=== PATIENT | female | born 1950 | race Caucasian/White ===

== ENCOUNTER 2020-07-13 20:16 | Emergency (ER) | payer MEDICARE, SELFPAY ==
--- NOTE | ~2020-07-13 | XR_ITS ---
EXAMINATION: XR CHEST CLINICAL INFORMATION: Fever and shortness of breath with question of pneumonia COMPARISON: 05/07/2017 TECHNIQUE: Frontal view of the chest was obtained. FINDINGS: Again seen is marked scoliosis and kyphosis. The heart size is normal. The lungs are clear without infiltrates, effusions or lung masses. There is no evidence of CHF. XR/XR chest 1V IMPRESSION: No acute intrathoracic disease.
[2020-07-13 20:59] VITALS: BP 124/94; PULSE 108; RESP 21; TEMP 38.5; O2SAT 99; BMI 20.4
--- NOTE | 2020-07-13 21:08 | ED.SOB ---
HPI - SOB/Dyspnea General Chief Complaint: Fever Stated Complaint: flu like Time Seen by Provider: 07/13/20 21:08 Source: patient Mode of arrival: ambulatory Limitations: no limitations History of Present Illness HPI Narrative: Patient with no known lung conditions comes here for 7 days of cough mostly dry with shortness of breath and low-grade fever on arrival patient had temperature of 101.3 was saturating 99% at room air MD elicited complaint: shortness of breath and cough Onset (ago): week(s) (1) Related Data Home Medications Medication Instructions Recorded Confirmed cyanocobalamin (vitamin B-12) 1,000 mcg PO DAILY 05/05/20 05/05/20 1,000 mcg tablet lisinopril 20 mg tablet 20 mg PO DAILY 05/05/20 05/05/20 megestrol 40 mg tablet 40 mg PO DAILY 05/05/20 05/05/20 Previous Rx's Medication Instructions Recorded food supplemt, lactose-reduced 1 ea PO DAILY 30 Days #5688 ml 06/04/20 loratadine 10 mg tablet 10 mg PO DAILY #30 tab 06/27/20 azithromycin [Zithromax] 250 mg PO DAILY 4 Days #4 tab 07/13/20 benzonatate [Tessalon Perles] 100 mg PO TID PRN #20 cap 07/13/20 dexamethasone [Decadron] 6 mg PO DAILY #7 tab 07/13/20 Allergies Allergy/AdvReac Type Severity Reaction Status Date / Time No Known Allergies Allergy Verified 05/05/20 14:12 [No Known Allergies*] Review of Systems Review of Systems: Constitutional : No Weight loss, + Fever, No Chills ENT/Mouth : No sore throat, No Rhinorrhea Eyes: No Eye Pain, No Swelling Cardiovascular : No Chest Pain, no palpitations Respiratory :++ Cough, No Sputum, +shortness of breath Gastrointestinal : no Nausea, No Vomiting, No Diarrhea, No abdominal Pain, no black stools Genitourinary : No Dysuria, No Urinary Frequency Musculoskeletal : No joint pain, No Myalgias, No Joint Swelling Skin : No Skin Lesions, No rash Neuro : No Weakness, No Numbness, No Dizziness, No Headache Psych : No Anxiety/Panic, No Depression Heme/Lymph: No Bruising, No Lymphadenopathy Endocrine : No Polyuria, No Polydipsia All other systems reviewed and are negative [facility] Past Medical History Medical History Allergic rhinitis Annual physical exam B12 deficiency Chronic fatigue Essential (primary) hypertension Malnourished Surgical History History of shoulder surgery Family History Family History Father Asthma Mother No problems noted. Brother Hypertension Social History Social History Alcohol intake: never Smoking Status: Never smoker Use of substances other than those prescribed or required for medical reasons: No Advance Directives: No Advance Directives Information Provided: No Physical Exam Vital Signs: Vital Signs: Last Vital Signs Temp 98.6 F 07/13/20 22:43 Pulse 95 07/13/20 22:43 Resp 18 07/13/20 22:43 BP 124/71 07/13/20 22:43 Pulse Ox 98 07/13/20 22:43 Body Mass Index 20.4 Appearance: Alert. Oriented X3. No acute distress. Febrile Eyes: Pupils equal, round and reactive to light. ENT: Pharynx normal. Neck: Normal inspection. Neck supple. CVS: Normal heart rate and rhythm. Pulses normal. Respiratory: No respiratory distress. Breath sounds normal. No rales or wheezing Abdomen: Soft and nontender. Bowel sounds are present, no mass palpable, no CVA tenderness Skin: Skin warm and dry. Normal skin color. Normal skin turgor. Extremities: No lower extremity edema. Neuro: Oriented X 3. No motor deficit. No sensory deficit. MDM - SOB/Dyspnea MDM Narrative Medical decision making narrative: Patient's symptoms matching COVID-19 infection stable labs stable saturation chest x-ray negative for infiltrate will discharge patient home on Decadron and Zithromax advised to follow with PCP and keep social distancing Differential Diagnosis Differential diagnosis: Likely pneumonia Medical Records Attestation: I reviewed the patient's medical records. Lab Data Attestation: I reviewed the patient's lab results. Result diagrams: 07/13/20 21:40 07/13/20 21:40 Labs: Lab Results 07/13/20 07/13/20 07/13/20 Range/Units 21:25 21:40 21:40 WBC 3.5 L (4.8-10.8) X10*3/uL RBC 4.20 (4.20-5.50) X10*6/uL Hgb 13.0 (12.0-16.0) g/dl Hct 39.4 (37-47) % MCV 93.8 (80-98) fL MCH 31.0 (27.0-33.0) pg MCHC 33.0 (31.0-35.0) g/dl RDW 12.3 (11.0-16.0) % Plt Count 199 (160-400) X10*3/uL MPV 10.0 (9.4-12.3) fL Immature Gran % (Auto) 0.8 H (0.0-0.4) % Neut % (Auto) 66.6 (45-73) % Lymph % (Auto) 24.9 (20-40) % [place] % (Auto) 7.4 (2-11) % Eos % (Auto) 0.0 (0-4) % Baso % (Auto) 0.3 (0-2) % Lymph # (Auto) 0.9 L (1.2-4.9) X10*3/uL [place] # (Auto) 0.3 (0.1-1.2) X10*3/uL Eos # (Auto) 0.0 (0.0-0.4) X10*3/uL Baso # (Auto) 0.0 (0.0-0.2) X10*3/uL Abs Immat Gran (auto) 0.03 (0.00-0.03) X10*3/uL Absolute Neuts (auto) 2.4 (2.0-8.3) X10*3/uL Absolute Nucleated RBC 0.000 (0.0-0.012) X10*3/uL Nucleated RBC % (auto) 0.0 (0.0-0.2) /100WBC PT (10.8-13.0) SEC INR (0.9-1.1) APTT (24.1-38.0) SEC Sodium 140 (135-145) mmol/L Potassium 4.5 (3.3-5.1) mmol/L Chloride 106 (96-108) mmol/L Carbon Dioxide 22 (22-29) mmol/L Anion Gap 17 (12-20) BUN 15 (9-16) mg/dL Creatinine 1.11 (0.5-1.4) mg/dL Estim Creat Clear Calc 35.0 Estimated GFR 48 Random Glucose 104 (60-115) mg/dL Lactic Acid (0.5-2.0) mmol/L Calcium 8.3 L (8.4-10.2) mg/dL Total Bilirubin 0.5 (0.0-1.0) mg/dL Direct Bilirubin 0.2 (0.0-0.5) mg/dL AST 40 H (5-31) U/L ALT 35 H (0-31) U/L Alkaline Phosphatase 88 (39-117) U/L B-Natriuretic Peptide (<100) pg/mL Total Protein 7.4 (6.5-8.0) g/dL Albumin 4.2 (3.5-5.0) g/dL Urine Color Urine Appearance Urine pH (5.0-8.0) Ur Specific [place] (1.005-1.025) Urine Protein (NEG-TRACE) MG/DL Urine Glucose (UA) (NEG) MG/DL Urine Ketones (NEG) MG/DL Urine Blood (NEG) Urine Nitrite (NEG) Ur Leukocyte Esterase (NEG) Urine RBC (0) /HPF Urine WBC (0-4) /HPF Ur Squamous Epith Cells /LPF Urine Bacteria /LPF Hyaline Casts /LPF Urine Mucus /LPF Coronavirus (PCR) POSITIVE A (Negative) Influenza Type A (PCR) NEGATIVE (Negative) Influenza Type B (PCR) NEGATIVE (Negative) RSV RNA Qual (PCR) NEGATIVE (Negative) 07/13/20 07/13/20 07/13/20 Range/Units 21:40 21:40 21:40 WBC (4.8-10.8) X10*3/uL RBC (4.20-5.50) X10*6/uL Hgb (12.0-16.0) g/dl Hct (37-47) % MCV (80-98) fL MCH (27.0-33.0) pg MCHC (31.0-35.0) g/dl RDW (11.0-16.0) % Plt Count (160-400) X10*3/uL MPV (9.4-12.3) fL Immature Gran % (Auto) (0.0-0.4) % Neut % (Auto) (45-73) % Lymph % (Auto) (20-40) % [place] % (Auto) (2-11) % Eos % (Auto) (0-4) % Baso % (Auto) (0-2) % Lymph # (Auto) (1.2-4.9) X10*3/uL [place] # (Auto) (0.1-1.2) X10*3/uL Eos # (Auto) (0.0-0.4) X10*3/uL Baso # (Auto) (0.0-0.2) X10*3/uL Abs Immat Gran (auto) (0.00-0.03) X10*3/uL Absolute Neuts (auto) (2.0-8.3) X10*3/uL Absolute Nucleated RBC (0.0-0.012) X10*3/uL Nucleated RBC % (auto) (0.0-0.2) /100WBC PT 14.0 H (10.8-13.0) SEC INR 1.2 H (0.9-1.1) APTT 35.2 (24.1-38.0) SEC Sodium (135-145) mmol/L Potassium (3.3-5.1) mmol/L Chloride (96-108) mmol/L Carbon Dioxide (22-29) mmol/L Anion Gap (12-20) BUN (9-16) mg/dL Creatinine (0.5-1.4) mg/dL Estim Creat Clear Calc Estimated GFR Random Glucose (60-115) mg/dL Lactic Acid 1.3 (0.5-2.0) mmol/L Calcium (8.4-10.2) mg/dL Total Bilirubin (0.0-1.0) mg/dL Direct Bilirubin (0.0-0.5) mg/dL AST (5-31) U/L ALT (0-31) U/L Alkaline Phosphatase (39-117) U/L B-Natriuretic Peptide < 10 (<100) pg/mL Total Protein (6.5-8.0) g/dL Albumin (3.5-5.0) g/dL Urine Color Urine Appearance Urine pH (5.0-8.0) Ur Specific [place] (1.005-1.025) Urine Protein (NEG-TRACE) MG/DL Urine Glucose (UA) (NEG) MG/DL Urine Ketones (NEG) MG/DL Urine Blood (NEG) Urine Nitrite (NEG) Ur Leukocyte Esterase (NEG) Urine RBC (0) /HPF Urine WBC (0-4) /HPF Ur Squamous Epith Cells /LPF Urine Bacteria /LPF Hyaline Casts /LPF Urine Mucus /LPF Coronavirus (PCR) (Negative) Influenza Type A (PCR) (Negative) Influenza Type B (PCR) (Negative) RSV RNA Qual (PCR) (Negative) 07/13/20 Range/Units 22:44 WBC (4.8-10.8) X10*3/uL RBC (4.20-5.50) X10*6/uL Hgb (12.0-16.0) g/dl Hct (37-47) % MCV (80-98) fL MCH (27.0-33.0) pg MCHC (31.0-35.0) g/dl RDW (11.0-16.0) % Plt Count (160-400) X10*3/uL MPV (9.4-12.3) fL Immature Gran % (Auto) (0.0-0.4) % Neut % (Auto) (45-73) % Lymph % (Auto) (20-40) % [place] % (Auto) (2-11) % Eos % (Auto) (0-4) % Baso % (Auto) (0-2) % Lymph # (Auto) (1.2-4.9) X10*3/uL [place] # (Auto) (0.1-1.2) X10*3/uL Eos # (Auto) (0.0-0.4) X10*3/uL Baso # (Auto) (0.0-0.2) X10*3/uL Abs Immat Gran (auto) (0.00-0.03) X10*3/uL Absolute Neuts (auto) (2.0-8.3) X10*3/uL Absolute Nucleated RBC (0.0-0.012) X10*3/uL Nucleated RBC % (auto) (0.0-0.2) /100WBC PT (10.8-13.0) SEC INR (0.9-1.1) APTT (24.1-38.0) SEC Sodium (135-145) mmol/L Potassium (3.3-5.1) mmol/L Chloride (96-108) mmol/L Carbon Dioxide (22-29) mmol/L Anion Gap (12-20) BUN (9-16) mg/dL Creatinine (0.5-1.4) mg/dL Estim Creat Clear Calc Estimated GFR Random Glucose (60-115) mg/dL Lactic Acid (0.5-2.0) mmol/L Calcium (8.4-10.2) mg/dL Total Bilirubin (0.0-1.0) mg/dL Direct Bilirubin (0.0-0.5) mg/dL AST (5-31) U/L ALT (0-31) U/L Alkaline Phosphatase (39-117) U/L B-Natriuretic Peptide (<100) pg/mL Total Protein (6.5-8.0) g/dL Albumin (3.5-5.0) g/dL Urine Color YELLOW Urine Appearance HAZY Urine pH 6.0 (5.0-8.0) Ur Specific [place] >= 1.030 H (1.005-1.025) Urine Protein 2+ H (NEG-TRACE) MG/DL Urine Glucose (UA) NEG (NEG) MG/DL Urine Ketones NEG (NEG) MG/DL Urine Blood TRACE (NEG) Urine Nitrite NEG (NEG) Ur Leukocyte Esterase NEG (NEG) Urine RBC 1-4 (0) /HPF Urine WBC 1-4 (0-4) /HPF Ur Squamous Epith Cells 2+ /LPF Urine Bacteria 2+ /LPF Hyaline Casts 1-4 /LPF Urine Mucus 2+ /LPF Coronavirus (PCR) (Negative) Influenza Type A (PCR) (Negative) Influenza Type B (PCR) (Negative) RSV RNA Qual (PCR) (Negative) ECG Data Attestation: I personally reviewed and interpreted this ECG as follows: Interpretation: Sinus tachycardia with heart rate of [address] T wave changes normal and interval normal axis impression sinus tachycardia no ischemia Discharge Plan Discharge Clinical Impression: COVID-19 Patient Disposition: Home, Self-Care Instructions: COVID-19 (Coronavirus Disease 2019) (ED) Additional Instructions: Social distancing is advised take medication for cough and inflammation. Report to the ER if increased shortness of breath or not feeling better Prescriptions: New dexamethasone [Decadron] 6 mg tablet 6 mg PO DAILY Qty: 7 RF: 0 azithromycin [Zithromax] 250 mg tablet 250 mg PO DAILY 4 Days Qty: 4 RF: 0 benzonatate [Tessalon Perles] 100 mg capsule 100 mg PO TID PRN (Reason: cough) Qty: 20 RF: 0 No Action loratadine 10 mg tablet 10 mg PO DAILY Qty: 30 RF: 0 Ensure Liquid 1 ea PO DAILY 30 Days Qty: 5688 RF: 0 lisinopril 20 mg tablet 20 mg PO DAILY RF: 0 cyanocobalamin (vitamin B-12) 1,000 mcg tablet 1,000 mcg PO DAILY RF: 0 megestrol 40 mg tablet 40 mg PO DAILY RF: 0 Interventions: ED Discharge Assessment Last Done: 07/13/20 22:55 Discharge Date/Time: 07/13/20 23:08
--- NOTE | 2020-07-13 21:11 | ECG_ITS ---
Test Reason : SHORTNESS OFBREATH Blood Pressure : / mmHG Vent. Rate : 104 BPM Atrial Rate : 104 BPM P-R Int : 116 ms QRS Dur : 080 ms QT Int : 346 ms P-R-T Axes : 040 088 038 degrees QTc Int : 454 ms Sinus tachycardia Otherwise normal ECG When compared with ECG of 07-MAY-2017 13:46, No significant change was found Referred By: Danny Varela Electronically Signed By:LATOYA CESPEDES MD
[2020-07-13] MEDS: 0.9 % Sodium Chloride 1,000 ML 999 ML IVCONT (21:42)
[2020-07-13 21:48] LABS: Basophils Percent Auto 0.3 % (0-2); Hematocrit 39.4 % (37-47); Imm Gran Abs Auto 0.03 X10*3/uL (0.00-0.03); Imm Gran Pct Auto 0.8 % (0.0-0.4); Lymphocytes Absolute Auto 0.9 X10*3/uL (1.2-4.9); Lymphocytes Percent Auto 24.9 % (20-40); MANUAL DIFF FLAG NO; Mean Corpuscular Volume 93.8 fL (80-98); Monocytes Absolute Auto 0.3 X10*3/uL (0.1-1.2); Monocytes Percent Auto 7.4 % (2-11); Neutrophils Absolute Auto 2.4 X10*3/uL (2.0-8.3); Neutrophils Percent Auto 66.6 % (45-73); Platelet Count 199 X10*3/uL (160-400); Red Cell Distribution Width 12.3 % (11.0-16.0); White Blood Count 3.5 X10*3/uL (4.8-10.8)
[2020-07-13] MEDS: Acetaminophen 325 MG TABLET 650 MG PO (21:48)
[2020-07-13 21:58] LABS: INTERNATIONAL NORM RATIO 1.2 (0.9-1.1)
[2020-07-13 22:00] LABS: Partial Thromboplastin Time 35.2 SEC (24.1-38.0)
[2020-07-13 22:06] LABS: Lactic Acid 1.3 mmol/L (0.5-2.0)
[2020-07-13 22:12] LABS: Alanine Aminotransferase 35 U/L (0-31); Albumin Level 4.2 g/dL (3.5-5.0); Alkaline Phosphatase 88 U/L (39-117); Anion Gap 17 (12-20); Aspartate Amino Transferase 40 U/L (5-31); Bilirubin Direct 0.2 mg/dL (0.0-0.5); Bilirubin Total 0.5 mg/dL (0.0-1.0); Blood Urea Nitrogen 15 mg/dL (9-16); Calcium 8.3 mg/dL (8.4-10.2); Carbon Dioxide 22 mmol/L (22-29); Chloride 106 mmol/L (96-108); Estimated Glomerular Filt Rate 48; Glucose Random 104 mg/dL (60-115); Potassium 4.5 mmol/L (3.3-5.1); Sodium 140 mmol/L (135-145); Total Protein 7.4 g/dL (6.5-8.0)
[2020-07-13 22:18] LABS: B Type Natriuretic Peptide < 10 pg/mL (<100)
[2020-07-13 22:23] LABS: Influenza A PCR NEGATIVE (Negative); Influenza B PCR NEGATIVE (Negative); Resp Syncy Virus RNA Qual PCR NEGATIVE (Negative)
[2020-07-13 22:27] LABS: SARS COV2 PCR INHOUSE POSITIVE (Negative)
[2020-07-13 22:43] VITALS: BP 124/71; PULSE 95; RESP 18; TEMP 37; O2SAT 98
[2020-07-13] MEDS: Azithromycin 500 MG TABLET PO (22:48)
[2020-07-13] MEDS: dexAMETHasone 2 MG TABLET 10 MG PO (22:48)
[2020-07-13 22:54] LABS: Glucose Urine UA NEG (NEG); Leukocyte Esterase Urine NEG (NEG); Nitrite Urine NEG (NEG); Specific Gravity - Urine >= 1.030 (1.005-1.025); Urine Blood TRACE (NEG); Urine Ketones NEG (NEG); Urine Protein 2+ MG/DL (NEG-TRACE)
[2020-07-13 22:57] LABS: Appearance Urine HAZY; Color Urine YELLOW
[2020-07-13 23:01] LABS: Bacteria Urine 2+ /LPF; Mucus Urine 2+ /LPF; Squamous Epithelial Cell Urine 2+ /LPF
== END 2020-07-13 23:08 | disposition home or self-care (01) ==
PROVIDERS: Emergency Provider Internal Medicine; PCP Internal Medicine
DX: U07.1 COVID-19 (principal); R50.9 Fever, unspecified; R05 Cough; Z79.899 Other long term (current) drug therapy
CPT/HCPCS: 0241U; 36415; 71045; 80048; 80076; 81001; 83605; 83880; 85025; 85610; 85730; 87040; 93005; 96360; 99284; J8540

== ENCOUNTER 2021-02-18 11:35 | Outpatient (REF) | payer MEDICARE, SELFPAY ==
--- NOTE | ~2021-02-18 | MM_ITS ---
EXAMINATION: MM SCREENING DIGITAL BREAST TOMOSYNTHESIS, BILATERAL CLINICAL INFORMATION: Screening. Asymptomatic. The lifetime risk of breast cancer based on the Tyrer-Cuzick Model is 2%. COMPARISON: Mammography: 03/28/2017, 02/13/2016 (baseline) TECHNIQUE: Digital breast tomosynthesis is performed in both the craniocaudal and mediolateral oblique views along with computer-aided detection (CAD). Synthesized 2D images are generated from the tomosynthesis. FINDINGS: There are scattered areas of fibroglandular density (ACR BI-RADS breast composition Category b). There are no significant masses, abnormal calcifications, or other abnormalities. Parenchymal pattern is similar to prior exams. No developing. No significant changes. MM/MM tomosynthesis screening BI IMPRESSION: No mammographic evidence of malignancy. ASSESSMENT: BI-RADS 1: Negative RECOMMENDATION: Routine annual mammography screening. This patient's information was entered into a reminder system with a target due date for their next mammogram.
== END 2021-02-18 11:36 | disposition home or self-care (01) ==
LOC: HO.MAMMO 11:35
PROVIDERS: Visit Provider Internal Medicine
DX: Z12.31 Encounter for screening mammogram for malignant neoplasm of breast (principal)
CPT/HCPCS: 77063; 77067

== ENCOUNTER → 2021-09-17 09:50 | Outpatient (BNVA) | payer MEDICARE, SELFPAY | PROVIDERS: PCP Internal Medicine; Referring Provider Internal Medicine; Visit Provider Physician Assistant | DX: Z01.818 Encounter for other preprocedural examination (principal) | CPT/HCPCS: 99202 ==

== ENCOUNTER 2021-09-25 10:58 | Outpatient (REF) | payer OTHER, SELFPAY ==
[2021-09-25 11:30] LABS: MANUAL DIFF FLAG NO
[2021-09-25 11:50] LABS: Basophils Percent Auto 0.6 % (0-2); Eosinophils Absolute Auto 0.2 X10*3/uL (0.0-0.4); Eosinophils Percent Auto 2.8 % (0-4); Hematocrit 39.3 % (37.0-47.0); Imm Gran Abs Auto 0.03 X10*3/uL (0.00-0.03); Imm Gran Pct Auto 0.4 % (0.0-0.4); Lymphocytes Absolute Auto 2.1 X10*3/uL (1.2-4.9); Lymphocytes Percent Auto 29.7 % (20-40); Mean Corpuscular HGB Conc 33.1 g/dl (31.0-35.0); Mean Corpuscular Hemoglobin 31.1 pg (27.0-33.0); Monocytes Absolute Auto 0.5 X10*3/uL (0.1-1.2); Neutrophils Absolute Auto 4.3 x10*3/uL (2.0-8.3); Neutrophils Percent Auto 59.5 % (45-73); Platelet Count 270 X10*3/uL (160-400); Red Blood Count 4.18 X10*6/uL (4.20-5.50); Red Cell Distribution Width 12.7 % (11.0-16.0); White Blood Count 7.1 X10*3/uL (4.8-10.8)
[2021-09-25 12:29] LABS: Alanine Aminotransferase 12 U/L (0-31); Albumin Level 4.5 g/dL (3.5-5.0); Alkaline Phosphatase 105 U/L (39-117); Anion Gap 14 (12-20); Aspartate Amino Transferase 18 U/L (5-31); Bilirubin Total 0.7 mg/dL (0.0-1.0); Blood Urea Nitrogen 19 mg/dL (9-16); Calcium 9.8 mg/dL (8.4-10.2); Carbon Dioxide 21 mmol/L (22-29); Chloride 110 mmol/L (96-108); Cholesterol 234 mg/dL; Estimated Glomerular Filt Rate 41; Glucose Random 104 mg/dL (60-115); HDL Cholesterol 46 mg/dL; LDL Cholesterol Calculated 162 mg/dl; Potassium 4.4 mmol/L (3.3-5.1); Sodium 141 mmol/L (135-145); Total Protein 7.6 g/dL (6.5-8.0); Triglycerides 133 mg/dL
[2021-09-25 12:52] LABS: Thyroid Stimulating Hormone 6.82 uIU/mL (0.32-4.0)
[2021-09-25 13:10] LABS: Folate 10.2 ng/mL (> or = 4.0); Vitamin B12 535 pg/mL (200-900)
[2021-09-28 22:36] LABS: Transglutaminase IgA <1.0 U/mL
[2021-10-01 12:36] LABS: Vitamin D 25-OH, D2 <4 ng/mL; Vitamin D 25-OH, D3 16 ng/mL; Vitamin D 25-OH, Total 16 ng/mL (30-100)
[2021-10-01 13:47] LABS: Endomysial IgA Antibody Negative (Negative)
== END 2021-09-25 10:59 | disposition home or self-care (01) ==
LOC: HO.LAB 10:58
PROVIDERS: Absent Provider Internal Medicine; PCP Internal Medicine; Visit Provider Physician Assistant
DX: K52.9 Noninfective gastroenteritis and colitis, unspecified (principal); K59.09 Other constipation; E78.00 Pure hypercholesterolemia, unspecified; E53.8 Deficiency of other specified B group vitamins; E55.9 Vitamin D deficiency, unspecified; R53.82 Chronic fatigue, unspecified; Z12.11 Encounter for screening for malignant neoplasm of colon
CPT/HCPCS: 36415; 80053; 80061; 82306; 82607; 82746; 84443; 85025; 86231; 86364

== ENCOUNTER → 2022-03-09 12:05 | Outpatient (REF) | payer OTHER, SELFPAY ==
--- NOTE | 2022-03-09 12:34 | ECG_ITS ---
Test Reason : PRE OP Blood Pressure : / mmHG Vent. Rate : 098 BPM Atrial Rate : 098 BPM P-R Int : 136 ms QRS Dur : 086 ms QT Int : 348 ms P-R-T Axes : 072 095 070 degrees QTc Int : 444 ms Normal sinus rhythm Rightward axis Borderline ECG When compared with ECG of 13-JUL-2020 21:56, No significant change was found Referred By: Elizabeth Melchor Electronically Signed By:JHONATAN FLYNN MD
[2022-03-09 12:35] LABS: MANUAL DIFF FLAG NO
[2022-03-09 13:17] LABS: Basophils Percent Auto 0.5 % (0-2); Eosinophils Absolute Auto 0.2 X10*3/uL (0.0-0.4); Eosinophils Percent Auto 2.1 % (0-4); Hematocrit 40.8 % (37.0-47.0); Hemoglobin 13.4 g/dl (12.0-16.0); Imm Gran Abs Auto 0.03 X10*3/uL (0.00-0.03); Imm Gran Pct Auto 0.4 % (0.0-0.4); Lymphocytes Absolute Auto 2.4 X10*3/uL (1.2-4.9); Lymphocytes Percent Auto 30.9 % (20-40); Mean Corpuscular HGB Conc 32.8 g/dl (31.0-35.0); Mean Corpuscular Hemoglobin 30.6 pg (27.0-33.0); Mean Corpuscular Volume 93.2 fL (80.0-98.0); Mean Platelet Volume 10.1 fL (9.4-12.3); Monocytes Absolute Auto 0.5 X10*3/uL (0.1-1.2); Monocytes Percent Auto 6.9 % (2-11); Neutrophils Absolute Auto 4.5 x10*3/uL (2.0-8.3); Neutrophils Percent Auto 59.2 % (45-73); Platelet Count 284 X10*3/uL (160-400); Red Blood Count 4.38 X10*6/uL (4.20-5.50); Red Cell Distribution Width 12.5 % (11.0-16.0); White Blood Count 7.6 X10*3/uL (4.8-10.8)
[2022-03-09 14:04] LABS: Alanine Aminotransferase 15 U/L (0-31); Albumin Level 4.8 g/dL (3.5-5.0); Alkaline Phosphatase 100 U/L (39-117); Anion Gap 19 (12-20); Aspartate Amino Transferase 21 U/L (5-31); Bilirubin Total 0.7 mg/dL (0.0-1.0); Blood Urea Nitrogen 15 mg/dL (9-16); Carbon Dioxide 21 mmol/L (22-29); Chloride 105 mmol/L (96-108); Cholesterol 237 mg/dL; Estimated Glomerular Filt Rate 44; Glucose Fasting 85 mg/dL (60-99); HDL Cholesterol 52 mg/dL; LDL Cholesterol Calculated 162 mg/dl; Potassium 4.7 mmol/L (3.3-5.1); Sodium 140 mmol/L (135-145); Total Protein 7.9 g/dL (6.5-8.0); Triglycerides 119 mg/dL
[2022-03-09 14:26] LABS: Vitamin B12 344 pg/mL (200-900)
== END ==
LOC: HO.CARD 12:05
PROVIDERS: PCP Internal Medicine; Visit Provider Internal Medicine
DX: Z01.818 Encounter for other preprocedural examination (principal); E78.00 Pure hypercholesterolemia, unspecified; E78.5 Hyperlipidemia, unspecified; D64.9 Anemia, unspecified; E53.8 Deficiency of other specified B group vitamins
CPT/HCPCS: 36415; 80053; 80061; 82607; 82746; 85025; 93005

== ENCOUNTER 2022-03-16 16:18 | Outpatient (REF) | payer OTHER, SELFPAY ==
[2022-03-16 16:35] LABS: MANUAL DIFF FLAG NO
[2022-03-16 17:13] LABS: Basophils Absolute Auto 0.1 X10*3/uL (0.0-0.2); Basophils Percent Auto 0.8 % (0-2); Eosinophils Absolute Auto 0.2 X10*3/uL (0.0-0.4); Eosinophils Percent Auto 3.2 % (0-4); Hematocrit 37.6 % (37.0-47.0); Hemoglobin 12.3 g/dl (12.0-16.0); Imm Gran Abs Auto 0.02 X10*3/uL (0.00-0.03); Imm Gran Pct Auto 0.3 % (0.0-0.4); Lymphocytes Absolute Auto 2.7 X10*3/uL (1.2-4.9); Lymphocytes Percent Auto 37.4 % (20-40); Mean Corpuscular HGB Conc 32.7 g/dl (31.0-35.0); Mean Corpuscular Hemoglobin 30.8 pg (27.0-33.0); Mean Platelet Volume 10.3 fL (9.4-12.3); Monocytes Absolute Auto 0.7 X10*3/uL (0.1-1.2); Monocytes Percent Auto 9.4 % (2-11); Neutrophils Absolute Auto 3.5 x10*3/uL (2.0-8.3); Neutrophils Percent Auto 48.9 % (45-73); Platelet Count 263 X10*3/uL (160-400); Red Cell Distribution Width 12.8 % (11.0-16.0); White Blood Count 7.1 X10*3/uL (4.8-10.8)
[2022-03-16 17:48] LABS: Alanine Aminotransferase 14 U/L (0-31); Albumin Level 4.6 g/dL (3.5-5.0); Alkaline Phosphatase 95 U/L (39-117); Anion Gap 17 (12-20); Aspartate Amino Transferase 19 U/L (5-31); Bilirubin Total 0.4 mg/dL (0.0-1.0); Blood Urea Nitrogen 21 mg/dL (9-16); Calcium 9.6 mg/dL (8.4-10.2); Carbon Dioxide 21 mmol/L (22-29); Chloride 109 mmol/L (96-108); Cholesterol 225 mg/dL; Estimated Glomerular Filt Rate 44; Glucose Fasting 91 mg/dL (60-99); HDL Cholesterol 49 mg/dL; LDL Cholesterol Calculated 147 mg/dl; Potassium 4.6 mmol/L (3.3-5.1); Sodium 142 mmol/L (135-145); Total Protein 7.6 g/dL (6.5-8.0); Triglycerides 147 mg/dL
[2022-03-16 18:10] LABS: Free T4 (Free Thyroxine) 1.02 ng/dL (0.71-1.85); Thyroid Stimulating Hormone 4.76 uIU/mL (0.32-4.0); Vitamin D 25-OH Total 42.9 ng/mL (>30)
[2022-03-17 05:58] LABS: Folate 10.3 ng/mL (> or = 4.0); Vitamin B12 380 pg/mL (200-900)
== END 2022-03-16 16:19 | disposition home or self-care (01) ==
LOC: HO.LAB 16:18
PROVIDERS: PCP Internal Medicine; Visit Provider Internal Medicine
DX: R79.89 Other specified abnormal findings of blood chemistry (principal); E53.8 Deficiency of other specified B group vitamins; I10 Essential (primary) hypertension; E55.9 Vitamin D deficiency, unspecified
CPT/HCPCS: 36415; 80053; 80061; 82306; 82607; 82746; 84439; 84443; 85025

== ENCOUNTER 2022-09-22 13:51 | Outpatient (REF) | payer OTHER, SELFPAY ==
--- NOTE | ~2022-09-22 | MM_ITS ---
EXAMINATION: MM SCREENING DIGITAL BREAST TOMOSYNTHESIS, BILATERAL CLINICAL INFORMATION: Screening. Asymptomatic. The lifetime risk of breast cancer based on the Tyrer-Cuzick Model is 2.3%. COMPARISON: Mammography: February 18, 2021 and studies dating back to February 13, 2016 TECHNIQUE: Digital breast tomosynthesis is performed in both the craniocaudal and mediolateral oblique views along with computer-aided detection (CAD). Synthesized 2D images are generated from the tomosynthesis. FINDINGS: There are scattered areas of fibroglandular density (ACR BI-RADS breast composition Category b). There are no significant masses, abnormal calcifications, or other abnormalities. MM/MM tomosynthesis screening BI IMPRESSION: No significant changes from prior exam. ASSESSMENT: BI-RADS 1: Negative RECOMMENDATION: Routine annual mammography screening. This patient's information was entered into a reminder system with a target due date for their next mammogram.
== END 2022-09-22 13:52 | disposition home or self-care (01) ==
LOC: HO.MAMMO 13:51
PROVIDERS: PCP Internal Medicine; Visit Provider Internal Medicine
DX: Z12.31 Encounter for screening mammogram for malignant neoplasm of breast (principal)
CPT/HCPCS: 77063; 77067

== ENCOUNTER 2022-12-03 11:27 | Outpatient (REF) | payer OTHER, SELFPAY ==
[2022-12-03 11:37] LABS: MANUAL DIFF FLAG NO
[2022-12-03 12:35] LABS: Basophils Percent Auto 0.6 % (0-2); Eosinophils Absolute Auto 0.2 X10*3/uL (0.0-0.4); Eosinophils Percent Auto 3.6 % (0-4); Hematocrit 38.7 % (37.0-47.0); Hemoglobin 12.4 g/dl (12.0-16.0); Imm Gran Abs Auto 0.01 X10*3/uL (0.00-0.03); Imm Gran Pct Auto 0.2 % (0.0-0.4); Lymphocytes Absolute Auto 2.4 X10*3/uL (1.2-4.9); Mean Corpuscular Hemoglobin 30.5 pg (27.0-33.0); Mean Corpuscular Volume 95.3 fL (80.0-98.0); Mean Platelet Volume 10.4 fL (9.4-12.3); Monocytes Absolute Auto 0.6 X10*3/uL (0.1-1.2); Neutrophils Absolute Auto 3.2 x10*3/uL (2.0-8.3); Neutrophils Percent Auto 49.6 % (45-73); Platelet Count 250 X10*3/uL (160-400); Red Blood Count 4.06 X10*6/uL (4.20-5.50); Red Cell Distribution Width 13.1 % (11.0-16.0); White Blood Count 6.4 X10*3/uL (4.8-10.8)
[2022-12-03 13:07] LABS: Alanine Aminotransferase 34 U/L (0-31); Albumin Level 4.4 g/dL (3.5-5.0); Alkaline Phosphatase 99 U/L (39-117); Anion Gap 16 (12-20); Aspartate Amino Transferase 28 U/L (5-31); Bilirubin Total 0.6 mg/dL (0.0-1.0); Blood Urea Nitrogen 15 mg/dL (9-16); Calcium 9.8 mg/dL (8.4-10.2); Carbon Dioxide 24 mmol/L (22-29); Chloride 108 mmol/L (96-108); Cholesterol 224 mg/dL; Estimated Glomerular Filt Rate 52; Glucose Fasting 93 mg/dL (60-99); HDL Cholesterol 57 mg/dL; Iron 80 mcg/dL (30-160); LDL Cholesterol Calculated 134 mg/dl; Percent Iron Saturation 24 % (15-50); Potassium 4.9 mmol/L (3.3-5.1); Sodium 143 mmol/L (135-145); Total Iron Binding Capacity 330 mcg/dL (228-428); Total Protein 7.6 g/dL (6.5-8.0); Triglycerides 166 mg/dL; Unsaturated Iron Binding 250 ug/dL
[2022-12-03 13:10] LABS: Vitamin D 25-OH Total 56.6 ng/mL (>30)
[2022-12-03 13:17] LABS: Folate 16.8 ng/mL (> or = 4.0); Vitamin B12 595 pg/mL (200-900)
== END 2022-12-03 11:28 | disposition home or self-care (01) ==
LOC: HO.LAB 11:27
PROVIDERS: PCP Internal Medicine; Visit Provider Internal Medicine
DX: Z00.00 Encounter for general adult medical examination without abnormal findings (principal); D64.9 Anemia, unspecified; E53.8 Deficiency of other specified B group vitamins; E55.9 Vitamin D deficiency, unspecified; E78.5 Hyperlipidemia, unspecified
CPT/HCPCS: 36415; 80053; 80061; 82306; 82607; 82746; 83540; 85025

== ENCOUNTER 2022-12-08 15:56 | Outpatient (AMB) | payer OTHER, SELFPAY ==
--- NOTE | 2022-12-08 15:58 | A.OFFPC_ITS ---
Vital Signs 12/08/22 15:59 12/08/22 16:18 Height 5 ft 1 in Weight 116 lb BMI 21.9 BP 142/90 H 138/90 H Blood Pressure Location Lt brachial Lt brachial Position Sitting Sitting Intake Visit Reasons: bp Intake Note: Patient here for a follow up BP High Value Associate Required: No Accompanied by: Daughter Allergies No Known Allergies [No Known Allergies*] Allergy (Verified 12/08/22 16:06) Medication List - Last Reconciled 12/08/22 by Elizabeth Melchor MD atorvastatin 20 mg PO BEDTIME 90 days bisacodyl (Dulcolax (bisacodyl)) 10 mg (2 x 5 mg) PO ONCE 1 day blood pressure monitor As directed cholecalciferol (vitamin D3) 50 mcg PO DAILY 90 days cyanocobalamin (vitamin B-12) 1,000 mcg PO DAILY 90 days folic acid 1 mg PO DAILY 90 days lisinopril 40 mg PO DAILY 90 days loratadine 10 mg PO DAILY 30 days megestrol 40 mg PO BID 90 days polyethylene glycol 3350 (Miralax) 238 grams PO ONCE 1 day Tobacco use date assessed: 07/05/22 Fall risk assessment: No Falls in past year Last assessed Fall Risk: 12/08/22 Dental Screening Dental Screen Date: 12/08/22 Did you have a dental visit in the last 12 months?: No Did you have a dental problem in the last 6 months where you did not have access to dental care?: No Was dental information given to patient?: No HPI HPI Comments History of Present Illness Details This is a 72 year female with hypertension, pure hypercholesterolemia, B12 deficiency and low vitamin-D that comes today accompanied by daughter for follow-up on her conditions. Blood pressure borderline normal to elevated I will add hydrochlorothiazide. Cholesterol elevated but she has been out of the medication for over a month. On supplements or vitamin B12 and vitamin-D deficiency. Denies any chest pain or shortness of breath. [facility] Medical History (Updated 08/03/22 @ 14:48 by Elizabeth Melchor MD) Allergic rhinitis Annual physical exam B12 deficiency Chronic fatigue COVID-19 Essential (primary) hypertension Malnourished Pure hypercholesterolemia Surgical History (Updated 08/03/22 @ 14:48 by Elizabeth Melchor MD) Cataract History of shoulder surgery Family History Father Asthma Mother No problems noted. Brother Hypertension Social History Housing: Apartment Alcohol intake: never Patient Tobacco Use Status: Never used Tobacco e-Cigarette/Vaping Use: Never Used Second Hand Smoke Exposure: No service: No Current occupational status: disabled Cognitive needs: No Hearing needs: No Vision needs: No Questionnaire Thrive Questionnaire Date Thrive assessed: 08/03/22 DAFNE-7 AMB Questionnaire DAFNE-7 Date DAFNE - 7 assessed: 07/05/22 Source: Developed by Drs. Bennett Clements, Disha Aguayo, Samir Champion and colleagues, with an educational carmelo from [employer]. Review of Systems Const All systems reviewed & are unremarkable except as noted in HPI and below Eyes Reports no additional complaints, Denies change in vision and Denies other visual disturbances Card Denies chest pain at rest, Denies chest pain with activity, Denies edema, Denies irregular heart rhythm, Denies claudication, Denies dyspnea, Denies dyspnea on exertion, Denies orthopnea, Denies paroxysmal nocturnal dyspnea and Denies slow heart rate Resp Denies cough, Denies dyspnea and Denies dyspnea on exertion GI Denies abdominal pain, Denies change in bowel habits, Denies excessive flatus, Denies nausea and Denies vomiting Denies urinary incontinence, Denies urinary hesitancy and Denies urinary urgency Musc Denies abnormal gait, Denies atrophy, Denies deformity and Denies limited range of motion Skin/Breast Denies bleeding lesions, Denies changing lesions and Denies rash Neuro Denies abnormal gait and Denies lack of coordination Physical exam (Primary Care) Vital Signs: Last Vital Signs BP 142/90 H 12/08/22 15:59 BMI result Body Mass Index 21.9 Tobacco/Smoking Status: Tobacco use Status Tobacco use date assessed 07/05/22 12/08/22 16:04 Patient Tobacco Use Status Never used Tobacco 12/08/22 16:04 e-Cigarette/Vaping Use Never Used 12/08/22 16:04 Thrive Assessment: Date of Thrive Assessment Date Thrive assessed 08/03/22 12/08/22 16:04 Eyes General: appearance normal, both eyes and all related structures Eyelids: Yes eyelids normal Conjunctivae: conjunctivae normal Neck Neck: Yes normal visual inspection and Yes supple Resp Effort & Inspection: normal respiratory effort Auscultation: clear to auscultation bilaterally Cardio Jugular venous distension: no JVD Rate: regular rate Rhythm: regular rhythm Heart sounds: S1 normal heart sound present and S2 normal heart sound present Extrem General: Yes full ROM Assessment and Plan Assessment & Plan (1) Essential (primary) hypertension: Code(s): I10 - Essential (primary) hypertension Plan: Continue lisinopril. Start hydrochlorothiazide. Blood pressure goal is equal or less than 130/80. (2) Pure hypercholesterolemia: Code(s): E78.00 - Pure hypercholesterolemia, unspecified Plan: Restart statins. (3) B12 deficiency: Code(s): E53.8 - Deficiency of other specified B group vitamins Plan: Continue vitamin B12 supplements. (4) Hypovitaminosis D: Code(s): E55.9 - Vitamin D deficiency, unspecified Plan: Continue vitamin-D supplements. Orders: Orders Vitamin D 25-OH Total 4 Months E55.9 - Vitamin D deficiency, unspecified Vitamin B12 and Folate 4 Months E53.8 - Deficiency of other specified B group vitamins Lipid Panel 4 Months E78.5 - Hyperlipidemia, unspecified Comprehensive [place]. Panel Fast 4 Months I10 - Essential (primary) hypertension Medications: New hydrochlorothiazide 12.5 mg PO DAILY 90 days 90 tabs 1RF Refilled atorvastatin 20 mg PO BEDTIME 90 days 90 tabs 1RF E78.00 - Pure hypercholesterolemia, unspecified Coding Level of Care Code Est Pt Level 4 (20434) Diagnoses Essential (primary) hypertension I10 Pure hypercholesterolemia E78.00 B12 deficiency E53.8 Hypovitaminosis D E55.9 Time Spent (min) 21
[2022-12-08 15:59] VITALS: BP 142/90; BMI 21.9
[2022-12-08 16:18] VITALS: BP 138/90
== END 2022-12-08 16:16 | disposition home or self-care (01) ==
PROVIDERS: PCP Internal Medicine; Visit Provider Internal Medicine
DX: I10 Essential (primary) hypertension (principal); E78.00 Pure hypercholesterolemia, unspecified; E53.8 Deficiency of other specified B group vitamins; E55.9 Vitamin D deficiency, unspecified
CPT/HCPCS: 99214

== ENCOUNTER 2023-09-26 12:23 | Outpatient (AMB) | payer OTHER, SELFPAY ==
--- NOTE | 2023-09-26 12:25 | A.OFFPC_ITS ---
Vital Signs 09/26/23 12:26 Height 5 ft 1 in Weight 109 lb BMI 20.6 BP 140/72 H Blood Pressure Location Lt brachial Position Sitting Intake Visit Reasons: PE Intake Note: Patient here for a physical exam [employer] Worker Required: No Accompanied by: Self / Same As Patient Allergies No Known Allergies [No Known Allergies*] Allergy (Verified 09/26/23 12:47) Medication List - Last Reconciled 09/26/23 by Elizabeth Melchor MD atorvastatin 20 mg PO BEDTIME 90 days bisacodyl (Dulcolax (bisacodyl)) 10 mg (2 x 5 mg) PO ONCE 1 day blood pressure monitor As directed cholecalciferol (vitamin D3) 50 mcg PO DAILY 90 days cyanocobalamin (vitamin B-12) 1,000 mcg PO DAILY 90 days folic acid 1 mg PO DAILY 90 days hydrochlorothiazide 12.5 mg PO DAILY 90 days lisinopril 40 mg PO DAILY 90 days loratadine 10 mg PO DAILY 30 days megestrol 40 mg PO BID 90 days polyethylene glycol 3350 (Miralax) 238 grams PO ONCE 1 day Tobacco use date assessed: 09/26/23 Fall risk assessment: No Falls in past year Last assessed Fall Risk: 09/26/23 Dental Screening Dental Screen Date: 09/26/23 Did you have a dental visit in the last 12 months?: No Did you have a dental problem in the last 6 months where you did not have access to dental care?: No Was dental information given to patient?: Patient declined HPI HPI Comments History of Present Illness Details This is a 73-year-old female that comes for her physical exam. Last mammogram was 2022 and has an appointment for this month for another mammogram. No chest pain or shortness of breath. Has a murmur and will have echocardiogram to rule out any valvular abnormality. No need for Pap smear or colonoscopy due to age. [facility] Medical History (Updated 09/26/23 @ 13:31 by Elizabeth Melchor MD) Pure hypercholesterolemia COVID-19 Annual physical exam Allergic rhinitis Malnourished Chronic fatigue B12 deficiency Essential (primary) hypertension Surgical History Cataract History of shoulder surgery Family History (Updated 09/26/23 @ 12:51 by Elizabeth Melchor MD) Father Asthma Mother Stomach cancer Brother Hypertension Social History Housing: Apartment Alcohol intake: never Patient Tobacco Use Status: Never used Tobacco e-Cigarette/Vaping Use: Never Used Second Hand Smoke Exposure: No service: No Current occupational status: disabled Cognitive needs: No Hearing needs: No Vision needs: No Questionnaire PHQ-9 Over the last 2 weeks, how often have you been bothered by any of the following problems? 1. Little interest or pleasure in doing things: not at all 2. Feeling down, depressed, or hopeless: several days 3. Trouble falling or staying asleep, or sleeping too much: not at all 4. Feeling tired or having little energy: not at all 5. Poor appetite or overeating: not at all 6. Feeling bad about yourself - or that you are a failure or have let yourself or your family down: not at all 7. Trouble concentrating on things, such as reading the newspaper or watching television: not at all 8. Moving or speaking so slowly that other people could have noticed. Or the opposite - being so fidgety or restless that you have been moving around a lot more than usual: not at all 9. Thoughts that you would be better off or of hurting yourself in some way: not at all Total score: 1 Depression Screening Interpretation: Negative Depression Screening Done: Yes 52818 - PHQ-9 Billing: Yes Source: Developed by Drs. Bennett Clements, Disha Aguayo, Samir Champion and colleagues, with an educational carmelo from [employer]. Thrive Questionnaire Date Thrive assessed: 09/26/23 I am a: Patient What is your living situation today?: I have a steady place to live Within the past 12 months, did the food you bought not last and you didn't have the money to get more?: Never true Within the past 12 months, did you worry whether your food would run out before you got money to buy more?: Never true Do you have trouble paying for medicines?: No Do you have trouble getting transportation to medical appointments?: No Do you have trouble paying your heating and electricity bill?: No Do you have trouble taking care of your child, family member or friend?: No Do you have trouble with day-to-day activities such as bathing, preparing meals, shopping, managing finances, etc.?: No Are you currently unemployed and looking for a job?: No Are you interested in more education?: No Please select the resources that you would like help with: None Currently or been in a relationship where the following occur: no concerns reported THRIVE Score: 0 AUDIT C Alcohol Use Questionnaire (AUDIT-C) 1. How often do you have a drink containing alcohol?: Never Total Score: 0 Score Reviewed/Action Taken: No DAFNE-7 AMB Questionnaire DAFNE-7 Date DAFNE - 7 assessed: 09/26/23 Feeling nervous, anxious, or on edge: 0 = Not at all Not being able to stop or control worryin = Not at all Worrying too much about different things: 0 = Not at all Trouble relaxin = Not at all Being so restless that it is hard to sit still: 0 = Not at all Becoming easily annoyed or irritable: 0 = Not at all Feeling afraid as if something awful might happen: 0 = Not at all Total DAFNE-7 score (0-4 normal; 5-9 mild; 10-14 moderate; 15-21 severe): 0 Source: Developed by Drs. Bennett Clements, Disha Aguayo, Samir Champion and colleagues, with an educational carmelo from [employer]. DAFNE-7 Assessment Billing DAFNE-7 Assessment Tool: DAFNE-7 Assessment 13389 Review of Systems Const All systems reviewed & are unremarkable except as noted in HPI and below Eyes Reports no additional complaints, Denies change in vision and Denies other visual disturbances Card Denies chest pain at rest, Denies chest pain with activity, Denies edema, Denies irregular heart rhythm, Denies claudication, Denies dyspnea, Denies dyspnea on exertion, Denies orthopnea, Denies paroxysmal nocturnal dyspnea and Denies slow heart rate Resp Denies cough, Denies dyspnea and Denies dyspnea on exertion GI Denies abdominal pain, Denies change in bowel habits, Denies excessive flatus, Denies nausea and Denies vomiting Denies urinary incontinence, Denies urinary hesitancy and Denies urinary urgency Physical exam (Primary Care) Vital Signs: Last Vital Signs BP 140/72 H 05/06/24 12:26 BMI result Body Mass Index 20.6 Tobacco/Smoking Status: Tobacco use Status Tobacco use date assessed 09/26/23 09/26/23 12:29 Patient Tobacco Use Status Never used Tobacco 09/26/23 12:29 e-Cigarette/Vaping Use Never Used 09/26/23 12:29 PHQ-9: PHQ-9 Score PHQ-9: Total score 1 09/26/23 12:52 Depression Screening Interpretation: Negative Thrive Assessment: Date of Thrive Assessment Date Thrive assessed 09/26/23 09/26/23 12:29 Currently or been in a relationship where the following occur: no concerns reported Const Orientation/consciousness: patient oriented x3 HENMT Head: Yes normal to inspection, Yes normocephalic and Yes atraumatic Ears: external ears normal Eyes General: appearance normal, both eyes and all related structures Eyelids: Yes eyelids normal Conjunctivae: conjunctivae normal Neck Neck: Yes normal visual inspection and Yes supple Resp Effort & Inspection: normal respiratory effort Auscultation: clear to auscultation bilaterally Cardio Jugular venous distension: no JVD Rate: regular rate Rhythm: regular rhythm Heart sounds: Murmur heart sound present GI Inspection: Yes normal to inspection Palpation (GI): Soft to palpation and nontender Auscultation: normal bowel sounds Skin General skin exam: no rashes or lesions noted Neuro General: patient oriented x3 and no focal motor deficits Extrem General: Yes full ROM Psych Appearance: grossly normal Assessment and Plan Assessment & Plan (1) Physical exam: Code(s): Z00.00 - Encounter for general adult medical examination without abnormal findings Plan: Repeat in a year. Orders: Orders Vitamin D 25-OH Total Today E55.9 - Vitamin D deficiency, unspecified Vitamin B12 and Folate Today E53.8 - Deficiency of other specified B group vitamins Lipid Panel Today E78.5 - Hyperlipidemia, unspecified Comprehensive Mertzon. Panel Fast Today Z00.00 - Encounter for general adult medical examination without abnormal findings Free T4 (Free Thyroxine) Today R79.89 - Other specified abnormal findings of blood chemistry Thyroglobulin Antibodies Today R79.89 - Other specified abnormal findings of blood chemistry CA echo transthoracic complete Today R01.1 - Cardiac murmur, unspecified Complete Blood Count Auto Diff Today D64.9 - Anemia, unspecified Thyroid Stimulating Hormone Today R79.89 - Other specified abnormal findings of blood chemistry Thyroid Peroxidase Antibodies Today R79.89 - Other specified abnormal findings of blood chemistry Coding Level of Care Code Est Pt Prev Care >65y(39517) Diagnoses Physical exam Z00.00 Additional Codes DAFNE-7 Assessment Billing - DAFNE-7 Assessment Tool: DAFNE-7 Assessment 36309 ([id number]) Time Spent (min) 31
[2023-09-26 12:26] VITALS: BP 140/72; BMI 20.6
== END 2023-09-26 12:58 | disposition home or self-care (01) ==
PROVIDERS: PCP Internal Medicine; Visit Provider Internal Medicine
DX: Z00.00 Encounter for general adult medical examination without abnormal findings (principal); R01.1 Cardiac murmur, unspecified
CPT/HCPCS: 99397

== ENCOUNTER → 2023-10-12 14:09 | Outpatient (REF) | payer OTHER, SELFPAY ==
--- NOTE | 2023-10-12 14:16 | CA_ITS ---
Transthoracic Echocardiogram Patient (Last, First, Middle): Heather Stephen, Gender: Female Date of : 1950 Age: 73 Procedure Date: 10/12/2023 Procedure Type: Transthoracic Echocardiogram Location: OP Height: 160.02 cm Weight: 49.9 kg BSA: 1.50 m2 Heart Rate: bpm BP: 140 / 78 mmHg Regulatory Law Specialist: DEVEN Referring MD: Elizabeth Melchor MD Banking Teacher: Joshua Mckeon MD Symptoms: R01.1 - Cardiac murmur, unspecified Study Quality: Adequate ECG Rhythm: Sinus Conclusions: - 1. Normal LV ejection fraction of 60 65% with impaired relaxation filling pattern 2. Mild aortic and mitral regurgitation 3. Normal RV systolic pressure 4. No gross pericardial effusion Findings Left Ventricle Normal left ventricular size, thickness, and systolic function. The visually estimated ejection fraction is between 60-65%. Spectral Doppler is indicative of an impaired relaxation filling pattern. E/E prime ratio is between 8 and 15 consistent with indeterminate filling pressures. Right Ventricle Normal right ventricular cavity size and systolic function. Atria Both atria are normal in size. There is no evidence of interatrial shunt. Aortic Valve Normal aortic valve structure and function. There is no aortic valve stenosis. There is mild aortic valve regurgitation. Mitral Valve Normal mitral valve structure and function. There is mild mitral valve regurgitation. There is no mitral valve stenosis. Pulmonic Valve The pulmonic valve is likely normal. Tricuspid Valve Normal tricuspid valve structure. There is trace tricuspid valve regurgitation. The right ventricular systolic pressure is normal. The right ventricular systolic pressure is 30 mmHg. Normal right atrial pressure. There is no evidence of pulmonary hypertension. Great Vessels The pulmonary artery was not well visualized. There is no dilatation of the ascending aorta measuring 3.00 cm. Venous The inferior vena cava is normal in size and collapses greater than 50% with inspiration. Pericardium/Pleural There is no evidence of pericardial effusion. Prior Study Comparison Changes noted compared to prior study dated: 05/09/2017. mild aortic regurgitation noted Measurements 2D Linear Measurements IVSd: 0.77 0.6-0.9/0.6-1.0 cm LVIDd: 3.82 3.9-5.3/4.2-5.9 cm LVIDd Index: 2.55 2.4-3.2/2.2-3.1 cm/m2 LVIDs: 2.47 2.0-3.6 cm LVPWd: 0.82 0.7-1.1 cm LA Diam: 3.20 2.7-3.8/3.0-4.0 cm LAIDs Index: 2.13 1.5-2.3 cm/m2 LV Mass: 106.25 67-162/88-224 g LV Mass Index: 70.83 43-95/49-115 g/m2 LVOT Diam: 1.80 3.0+(-)1.3 cm 2D Systolic Function EF 4C: 68.20 >55% Mitral Valve MV Pk E: 0.97 MV PK A: 0.92 MV Decel Time: 196.00 E/A: 1.10 E'Lateral: 8.05 E'Medial: 5.77 E/E' Med: 16.80 E/E' Lat: 12.00 PHT: 57.00 MVA PHT: 3.86 Decel Wirt: 4.93 Aortic Valve AoV Pk Tristan: 1.21 AoV Mn Tristan: 0.87 AoV VTI: 0.27 AoV Pk Grad: 6.00 Aov Mn Grad: 3.00 LAURI Cont.VTI: 1.95 AI Pk Tristan: 3.68 AI Wirt: 2.95 LVOT LVOT Pk Tristan: 0.96 LVOT Mn Tristan: 0.67 LVOT VTI: 0.21 LVOT Pk Grad: 4.00 LVOT Mn Grad: 2.00 LVOT Diam: 1.80 LVOT Area: 2.54 Diastolic Function MV Pk E: 0.97 MV Pk A: 0.92 E/A: 1.10 E'Medial: 5.77 E/E' Med: 16.80 E' Laterial: 8.05 E/E' Lat: 12.00 Right Ventricle TAPSE (mm): 16.50 TVS' Tristan: 12.40 Tricuspid Valve TR Pk Tristan: 2.61 TR Pk Grad: 27.00 RA Press: 3.00 RVSP: 30.00 Great Vessels Aorta Sinus of Valsalva: 3.56 2.0-3.[address] [place]: 2.56 1.7-3.4 cm Ao Asc: 3.00 2.1-3.4 cm Updated in Other Vendor System with Status of Final Joshua Mckeon MD electronically signed on 10/13/2023 12:55:41 PM with status of Final
== END ==
LOC: HO.CARD 14:09
PROVIDERS: PCP Internal Medicine; Visit Provider Internal Medicine
DX: R01.1 Cardiac murmur, unspecified (principal)
CPT/HCPCS: 93306

== ENCOUNTER → 2023-10-12 14:16 | Outpatient (BNV) | payer OTHER, SELFPAY | PROVIDERS: PCP Internal Medicine; Visit Provider Internal Medicine Cardiovascular Disease | DX: I35.1 Nonrheumatic aortic (valve) insufficiency (principal); I34.0 Nonrheumatic mitral (valve) insufficiency | CPT/HCPCS: 93306 ==

== ENCOUNTER 2024-03-19 11:43 | Outpatient (REF) | payer OTHER, SELFPAY ==
[2024-03-19 12:02] LABS: MANUAL DIFF FLAG NO
[2024-03-19 12:27] LABS: Basophils Percent Auto 0.7 % (0-2); Eosinophils Absolute Auto 0.2 X10*3/uL (0.0-0.4); Eosinophils Percent Auto 3.4 % (0-4); Hematocrit 33.5 % (37.0-47.0); Hemoglobin 10.8 g/dl (12.0-16.0); Imm Gran Abs Auto 0.01 X10*3/uL (0.00-0.03); Imm Gran Pct Auto 0.2 % (0.0-0.4); Lymphocytes Percent Auto 35.1 % (20-40); Mean Corpuscular HGB Conc 32.2 g/dl (31.0-35.0); Mean Corpuscular Hemoglobin 29.6 pg (27.0-33.0); Mean Corpuscular Volume 91.8 fL (80.0-98.0); Mean Platelet Volume 10.4 fL (9.4-12.3); Monocytes Absolute Auto 0.5 X10*3/uL (0.1-1.2); Neutrophils Absolute Auto 2.9 x10*3/uL (2.0-8.3); Neutrophils Percent Auto 51.6 % (45-73); Platelet Count 256 X10*3/uL (160-400); Red Blood Count 3.65 X10*6/uL (4.20-5.50); Red Cell Distribution Width 13.1 % (11.0-16.0); White Blood Count 5.7 X10*3/uL (4.8-10.8)
[2024-03-19 13:08] LABS: Alanine Aminotransferase 16 U/L (0-31); Albumin Level 4.4 g/dL (3.5-5.0); Alkaline Phosphatase 103 U/L (39-117); Anion Gap 10 (12-20); Aspartate Amino Transferase 25 U/L (5-31); Bilirubin Total 0.6 mg/dL (0.0-1.0); Blood Urea Nitrogen 18 mg/dL (9-16); Calcium 9.6 mg/dL (8.4-10.2); Carbon Dioxide 26 mmol/L (22-29); Chloride 107 mmol/L (96-108); Cholesterol 235 mg/dL (<200); Estimated Glomerular Filt Rate 38; Glucose Fasting 87 mg/dL (60-99); HDL Cholesterol 59 mg/dL (>40); LDL Cholesterol Calculated 144 mg/dL (<100); Potassium 4.3 mmol/L (3.3-5.1); Sodium 139 mmol/L (135-145); Total Protein 7.8 g/dL (6.5-8.0); Triglycerides 163 mg/dL (<150)
[2024-03-19 13:27] LABS: Free T4 (Free Thyroxine) 0.93 ng/dL (0.71-1.85); Vitamin D 25-OH Total 87.3 ng/mL (>30)
[2024-03-19 13:30] LABS: Folate > 20.0 ng/mL (> or = 4.0); Vitamin B12 1713 pg/mL (200-900)
[2024-03-20 18:18] LABS: Thyroglobulin Antibodies 2 IU/mL (< or = 1); Thyroid Peroxidase Antibodies 782 IU/mL (<9)
== END 2024-03-19 11:44 | disposition home or self-care (01) ==
LOC: HO.LAB 11:43
PROVIDERS: PCP Internal Medicine; Visit Provider Internal Medicine
DX: Z00.00 Encounter for general adult medical examination without abnormal findings (principal); I10 Essential (primary) hypertension; E78.5 Hyperlipidemia, unspecified; D64.9 Anemia, unspecified; R79.89 Other specified abnormal findings of blood chemistry; E55.9 Vitamin D deficiency, unspecified; E53.8 Deficiency of other specified B group vitamins
CPT/HCPCS: 36415; 80053; 80061; 82306; 82607; 82746; 84439; 84443; 85025; 86376; 86800

== ENCOUNTER 2024-03-28 13:18 | Outpatient (AMB) | payer OTHER, SELFPAY ==
--- NOTE | 2024-03-28 13:28 | A.OFFPC_ITS ---
Vital Signs 03/28/24 13:34 Height 5 ft 1 in Weight 110 lb BMI 20.8 BP 136/70 Blood Pressure Location Lt brachial Position Sitting Intake Visit Reasons: bp - see comments Intake Note: Patient here for a follow up bp Director Digital Analytics Required: No Accompanied by: Daughter Allergies No Known Allergies [No Known Allergies*] Allergy (Verified 03/28/24 13:51) Medication List - Last Reconciled 03/28/24 by Elizabeth Melchor MD atorvastatin 20 mg PO BEDTIME 90 days bisacodyl (Dulcolax (bisacodyl)) 10 mg (2 x 5 mg) PO ONCE 1 day blood pressure monitor As directed cholecalciferol (vitamin D3) 50 mcg PO DAILY 90 days cyanocobalamin (vitamin B-12) 1,000 mcg PO DAILY 90 days folic acid 1 mg PO DAILY 90 days hydrochlorothiazide 12.5 mg PO DAILY 90 days lisinopril 40 mg PO DAILY 90 days loratadine 10 mg PO DAILY 30 days megestrol 40 mg PO BID 90 days polyethylene glycol 3350 (Miralax) 238 grams PO ONCE 1 day Tobacco use date assessed: 09/26/23 Fall risk assessment: No Falls in past year Last assessed Fall Risk: 03/28/24 Dental Screening Dental Screen Date: 09/26/23 HPI HPI Comments History of Present Illness Details This is a 73-year-old female with hypertension, pure hypercholesterolemia and autoimmune thyroiditis that comes today accompanied by daughter complaining of palpitations, right shoulder pain associated with weakness and thoracic spine pain. She also has muscle cramps and dizziness aggravated by activity. She needs assistance in dressing/undressing, bathing and mobility transfer. Does needs assistance in instrumental activities of daily living such as laundry and housekeeping. Blood pressure stable. Cho lesterol elevated and I will increase statins. TSH elevated and I will start her on levothyroxine 25 mcg. She has to take it on an empty stomach and wait an hour to eat and take the other medications. TSH will be repeated in 6 weeks. [facility] Medical History (Updated 03/28/24 @ 14:11 by Elizabeth Melchor MD) Pure hypercholesterolemia COVID-19 Annual physical exam Allergic rhinitis Malnourished Chronic fatigue B12 deficiency Essential (primary) hypertension Surgical History Cataract History of shoulder surgery Family History Father Asthma Mother Stomach cancer Brother Hypertension Social History Housing: Apartment Alcohol intake: never Patient Tobacco Use Status: Never used Tobacco e-Cigarette/Vaping Use: Never Used Second Hand Smoke Exposure: No service: No Current occupational status: disabled Cognitive needs: No Hearing needs: No Vision needs: No Questionnaire Thrive Questionnaire Date Thrive assessed: 09/26/23 DAFNE-7 AMB Questionnaire DAFNE-7 Date DAFNE - 7 assessed: 09/26/23 Source: Developed by Drs. Bennett Clements, Disha Aguayo, Samir Champion and colleagues, with an educational carmelo from [employer]. Review of Systems Const All systems reviewed & are unremarkable except as noted in HPI and below ENT Reports dizziness Card Denies chest pain at rest, Denies chest pain with activity, Reports rapid heart rate, Denies edema, Denies irregular heart rhythm, Denies claudication, Denies dyspnea, Denies dyspnea on exertion, Denies orthopnea, Denies paroxysmal nocturnal dyspnea and Denies slow heart rate Resp Denies cough, Denies dyspnea and Denies dyspnea on exertion GI Denies abdominal pain, Denies change in bowel habits, Denies excessive flatus, Denies nausea and Denies vomiting Musc Reports back pain, Reports arthralgias, Reports limited range of motion and Reports muscle cramps Neuro Reports dizziness Physical exam (Primary Care) Vital Signs: Last Vital Signs BP 136/70 03/28/24 13:34 BMI result Body Mass Index 20.8 Tobacco/Smoking Status: Tobacco use Status Tobacco use date assessed 09/26/23 03/28/24 13:32 Patient Tobacco Use Status Never used Tobacco 03/28/24 13:32 e-Cigarette/Vaping Use Never Used 03/28/24 13:32 Thrive Assessment: Date of Thrive Assessment Date Thrive assessed 09/26/23 03/28/24 13:32 Resp Effort & Inspection: normal respiratory effort Auscultation: clear to auscultation bilaterally Cardio Jugular venous distension: no JVD Rate: regular rate Rhythm: regular rhythm Heart sounds: S1 normal heart sound present and S2 normal heart sound present Extrem General: Yes full ROM Office Procedures Flu Questionnaire Does the patient have a severe egg allergy?: No Immunizations Fluarix Triv [id number] (PF) 45 mcg (15 mcg x 3)/0.5 mL IM syringe Performing Provider: Elizabeth Melchor MD [facility] Documented (not given) by: ESTELA Mendoza on 03/28/24 13:42 Reason Not Given: Patient Refused Coding Level of Care Code Est Pt Level 4 (89572) Complex EM visit Add On G2211 Diagnoses Autoimmune thyroiditis E06.3 Right shoulder pain M25.511 Thoracic spine pain M54.6 Pure hypercholesterolemia E78.00 Essential (primary) hypertension I10 Palpitations R00.2 Time Spent (min) 23 Assessment & Plan Assessment & Plan (1) Autoimmune thyroiditis: Code(s): E06.3 - Autoimmune thyroiditis Category: Medical Plan: Start levothyroxine. Repeat TSH in 6 weeks. (2) Right shoulder pain: Code(s): M25.511 - Pain in right shoulder Category: Medical Plan: X-ray ordered. (3) Thoracic spine pain: Code(s): M54.6 - Pain in thoracic spine Category: Medical Plan: X-ray ordered. (4) Pure hypercholesterolemia: Code(s): E78.00 - Pure hypercholesterolemia, unspecified Category: Medical Plan: Increase statins. (5) Essential (primary) hypertension: Code(s): I10 - Essential (primary) hypertension Category: Medical Plan: Continue hydrochlorothiazide. Blood pressure goal is equal or less than 130/80 (6) Palpitations: Code(s): R00.2 - Palpitations Category: Medical Plan: Holter monitor ordered. Orders: Orders Influenza [id number] Immunization Today Z23 - Encounter for immunization ECG 12 lead EKG Today R00.2 - Palpitations ECG holter monitor 24 hour Today R00.2 - Palpitations XR shoulder RT min 2V Today M25.511 - Pain in right shoulder Magnesium Today R25.2 - Cramp and spasm Thyroid Stimulating Hormone 6 Weeks E06.3 - Autoimmune thyroiditis XR thoracic spine 2V Today M54.6 - Pain in thoracic spine Referrals Orthopedics Referral M25.511 - Pain in right shoulder Medications: New atorvastatin 40 mg PO BEDTIME 90 tabs 0RF 90 days cholecalciferol (vitamin D3) 25 mcg PO DAILY 90 caps 0RF 90 days levothyroxine 25 mcg PO DAILY 90 tabs 0RF 90 days Changed From cyanocobalamin (vitamin B-12) 1,000 mcg PO DAILY 90 days 90 tabs 3RF To cyanocobalamin (vitamin B-12) 1,000 mcg PO .every other day 45 tabs 1RF 90 days Discontinued cholecalciferol (vitamin D3) Discontinued Reason: Patient Completed Course 50 mcg PO DAILY 90 days 90 caps 1RF atorvastatin Discontinued Reason: Patient Completed Course 20 mg PO BEDTIME 90 days 90 tabs 1RF E78.00 - Pure hypercholesterolemia, unspecified
[2024-03-28 13:34] VITALS: BP 136/70; BMI 20.8
== END 2024-03-28 14:09 | disposition home or self-care (01) ==
LOC: HO.HMCH 13:18
PROVIDERS: PCP Internal Medicine; Visit Provider Internal Medicine
DX: E06.3 Autoimmune thyroiditis (principal); M25.511 Pain in right shoulder; M54.6 Pain in thoracic spine; E78.00 Pure hypercholesterolemia, unspecified; I10 Essential (primary) hypertension; R00.2 Palpitations; Z23 Encounter for immunization

== ENCOUNTER → 2024-03-28 13:18 | Outpatient (BNVA) | payer OTHER, SELFPAY | PROVIDERS: PCP Internal Medicine; Visit Provider Internal Medicine | DX: E06.3 Autoimmune thyroiditis (principal); M25.511 Pain in right shoulder; M54.6 Pain in thoracic spine; E78.00 Pure hypercholesterolemia, unspecified; I10 Essential (primary) hypertension | CPT/HCPCS: 90471; 99212 ==

== ENCOUNTER → 2024-04-11 10:13 | Outpatient (REF) | payer OTHER, SELFPAY ==
--- NOTE | 2024-04-11 10:18 | HM_ITS ---
* Total monitoring time 1 day. * Underlying rhythm is sinus with an average rate of 87/Min. * Rare supraventricular ectopy. * Rare ventricular ectopy. * No significant pauses or high-grade AV blocks. * No patient markers. * No diary events. MTDD
--- NOTE | 2024-04-11 10:18 | ECG_ITS ---
Test Reason : r00.2 Blood Pressure : / mmHG Vent. Rate : 101 BPM Atrial Rate : 101 BPM P-R Int : 138 ms QRS Dur : 084 ms QT Int : 362 ms P-R-T Axes : 068 085 046 degrees QTc Int : 469 ms Sinus tachycardia Otherwise normal ECG When compared with ECG of 09-MAR-2022 12:35, Nonspecific T wave abnormality now evident in Inferior leads Referred By: Elizabeth Melchor Electronically Signed By:LATOYA CESPEDES MD
== END ==
LOC: HO.CARD 10:13
PROVIDERS: PCP Internal Medicine; Visit Provider Internal Medicine
DX: R00.2 Palpitations (principal)
CPT/HCPCS: 93005; 93225

== ENCOUNTER → 2024-04-11 10:18 | Outpatient (BNV) | payer OTHER, SELFPAY | PROVIDERS: PCP Internal Medicine; Visit Provider Internal Medicine Cardiovascular Disease | DX: I47.10 Supraventricular tachycardia, unspecified (principal) | CPT/HCPCS: 93010; 93227 ==

== ENCOUNTER 2024-05-28 09:52 | Outpatient (REF) | payer OTHER, SELFPAY ==
--- NOTE | ~2024-05-28 | XR_ITS ---
EXAMINATION: XR SHOULDER 2 OR MORE VIEWS RIGHT HISTORY: M25.511 - Pain in right shoulder COMPARISON: There are no prior studies available for comparison. FINDINGS: Three views of the right shoulder are submitted. The bones are osteopenic. There is no fracture or dislocation. The glenohumeral and acromioclavicular joint spaces are preserved. The soft tissues are unremarkable. XR/XR shoulder RT min 2V IMPRESSION: Osteopenia. No evidence of fracture of the right shoulder. Electronically signed by: Bennett Holden MD 05/31/2024 09:25 AM MADONNA
== END 2024-05-28 09:53 | disposition home or self-care (01) ==
LOC: HO.HOSX 09:52
PROVIDERS: Visit Provider Physician Assistant
DX: M25.511 Pain in right shoulder (principal); M75.81 Other shoulder lesions, right shoulder
CPT/HCPCS: 73030; 99202

== ENCOUNTER 2024-05-28 14:38 | Outpatient (AMB) | payer OTHER, SELFPAY ==
--- NOTE | 2024-05-28 14:55 | MHC.OFFVIS ---
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 Patient states there is no pain however for the past 4 months she has been experiencing weakness and numbness from her right shoulder down her right fingertips. Denies tingling. Denies neck or back surgery. Patient recalls right shoulder surgery over 20 years ago but does not remember what type of surgery she had. Patient has not tried PT or taken anything for pain given she is not having any pain. Patient denies any recent injuries to her shoulder. Ndt Inspector Required: No Accompanied by: Daughter Allergies No Known Allergies [No Known Allergies*] Allergy (Verified 05/28/24 15:04) Medication List - Last Reconciled 05/28/24 by Rodney Wild PA-C atorvastatin 40 mg PO BEDTIME 90 days bisacodyl (Dulcolax (bisacodyl)) 10 mg (2 x 5 mg) PO ONCE 1 day blood pressure monitor As directed cholecalciferol (vitamin D3) 25 mcg PO DAILY 90 days cyanocobalamin (vitamin B-12) 1,000 mcg PO .every other day 90 days folic acid 1 mg PO DAILY 90 days hydrochlorothiazide 12.5 mg PO DAILY 90 days levothyroxine 25 mcg PO DAILY 90 days lisinopril 40 mg PO DAILY 90 days loratadine 10 mg PO DAILY 30 days polyethylene glycol 3350 (Miralax) 238 grams PO ONCE 1 day HPI 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 She states the pain is occasional. She has difficulty with holding objects due to weakness. She also has occasional numbness that goes down the arm into the fingertips. No recent injury. She does have a surgery that was performed on her right shoulder approximately 20 years ago but she is unsure of the type of procedure. No recent treatment to date. [facility] Medical History Pure hypercholesterolemia COVID-19 Annual physical exam Allergic rhinitis Malnourished Chronic fatigue B12 deficiency Essential (primary) hypertension Surgical History Cataract History of shoulder surgery Family History Father Asthma Mother Stomach cancer Brother Hypertension Social History Housing: Apartment Alcohol intake: never Patient Tobacco Use Status: Never used Tobacco e-Cigarette/Vaping Use: Never Used Second Hand Smoke Exposure: No service: No Current occupational status: disabled Cognitive needs: No Hearing needs: No Vision needs: No Review of Systems Const All systems reviewed & are unremarkable except as noted in HPI and below Physical Exam Vital Signs: BMI result Body Mass Index 20.8 Const General: cooperative and no acute distress Orientation/consciousness: patient oriented x3 Resp Effort & Inspection: normal respiratory effort and able to speak in complete sentences Cardio Peripheral pulses: Peripheral pulses 2+ throughout Neuro General: patient oriented x3 Extrem Other: Right shoulder normal to inspection. She has full range of motion in all planes. She is able to activate rotator cuff strength testing. Neurovascularly intact. Quality Reporting (2019) Adult ([facility] 138/07/14/68) Smoking risk assessment performed?: Yes Patient Tobacco Use Status: Never used Tobacco Results Reviewed Results Reviewed: Xrays were obtained in the office today and personally reviewed by me of the right shoulder are negative for any acute or chronic abnormalities. Assessment & Plan Assessment & Plan (1) Tendinitis of right rotator cuff: Code(s): M75.81 - Other shoulder lesions, right shoulder Category: Medical Plan We discussed options which include physical therapy and modifications of activity. An order for physical therapy has been placed today she will work on increasing activities to tolerance. If symptoms persist or worsen she can contact our office to discuss a steroid injection otherwise she will follow-up as needed. Orders: Orders XR shoulder RT min 2V Today M25.511 - Pain in right shoulder PT Evaluation and Treatment Today M75.81 - Other shoulder lesions, right shoulder Coding Level of Care Code New Pt Level 3 (02448) Complex EM visit Add On G2211 Diagnoses Tendinitis of right rotator cuff M75.81
[2024-05-28 14:56] VITALS: BMI 20.8
== END 2024-05-28 15:17 | disposition home or self-care (01) ==
PROVIDERS: PCP Internal Medicine; Visit Provider Physician Assistant
DX: M75.81 Other shoulder lesions, right shoulder (principal)
CPT/HCPCS: 99203; G2211

== ENCOUNTER → 2024-05-28 14:46 | Outpatient (BNV) | payer OTHER, SELFPAY | PROVIDERS: Visit Provider Radiology Diagnostic Radiology | DX: M85.811 Other specified disorders of bone density and structure, right shoulder (principal) | CPT/HCPCS: 73030 ==

== ENCOUNTER 2024-08-09 09:49 | Outpatient (AMB) | payer OTHER, SELFPAY ==
--- NOTE | 2024-08-09 09:57 | A.OFFPC_ITS ---
Vital Signs 08/09/24 10:00 Height 5 ft 1 in Weight 106 lb BMI 20.0 BP 110/62 Blood Pressure Location Lt brachial Position Sitting Intake Visit Reasons: bp Intake Note: Patient here for a follow up BP Personal Property Assessor Required: Yes Personal Property Assessor Language: Medical Reimbursement Specialist Name: Elizabeth Dutta MD Information Interpreted: non-clinical & clinical Accompanied by: Daughter Allergies No Known Allergies [No Known Allergies*] Allergy (Verified 08/09/24 10:23) Medication List - Last Reconciled 08/09/24 by Elizabeth Melchor MD acetaminophen (Tylenol Extra Strength) 1,000 mg PO Q6H PRN atorvastatin 40 mg PO BEDTIME 90 days blood pressure monitor As directed cholecalciferol (vitamin D3) 25 mcg PO DAILY 90 days cyanocobalamin (vitamin B-12) 1,000 mcg PO .every other day 90 days folic acid 1 mg PO DAILY 90 days hydrochlorothiazide 12.5 mg PO DAILY 90 days levothyroxine 25 mcg PO DAILY 90 days lisinopril 40 mg PO DAILY 90 days loratadine 10 mg PO DAILY 30 days Tobacco use date assessed: 08/09/24 Fall risk assessment: No Falls in past year Last assessed Fall Risk: 08/09/24 Dental Screening Dental Screen Date: 08/09/24 Did you have a dental visit in the last 12 months?: No Did you have a dental problem in the last 6 months where you did not have access to dental care?: No Was dental information given to patient?: Patient has dentist HPI HPI Comments History of Present Illness Details The patient is a 73-year-old female presenting with concerns related to chronic condition management and treatment for pain associated with arthritis and osteopenia. Her medical history includes essential hypertension controlled with antihypertensives, vitamin B12 deficiency managed with a modified supplementation schedule due to previously high levels, and chronic kidney disease with progressive renal compromise noted from previous GFR results. Additionally, she reports hyperlipidemia currently managed with medication and hypothyroidism treated with levothyroxine, with recent labs indicating suboptimal thyroid control. She experiences persistent back pain and difficulty ambulating, indicative of possible arthritis and osteopenia, affecting her daily activities. Due to her renal function status, traditional NSAID use is avoided to prevent further renal impairment. [facility] Medical History Pure hypercholesterolemia COVID-19 Annual physical exam Allergic rhinitis Malnourished Chronic fatigue B12 deficiency Essential (primary) hypertension Surgical History Cataract History of shoulder surgery Family History Father Asthma Mother Stomach cancer Brother Hypertension Social History Housing: Apartment Alcohol intake: never Patient Tobacco Use Status: Never used Tobacco e-Cigarette/Vaping Use: Never Used Second Hand Smoke Exposure: No service: No Current occupational status: disabled Cognitive needs: No Hearing needs: No Vision needs: No Questionnaire PHQ-9 Over the last 2 weeks, how often have you been bothered by any of the following problems? 1. Little interest or pleasure in doing things: not at all 2. Feeling down, depressed, or hopeless: not at all 3. Trouble falling or staying asleep, or sleeping too much: not at all 4. Feeling tired or having little energy: not at all 5. Poor appetite or overeating: not at all 6. Feeling bad about yourself - or that you are a failure or have let yourself or your family down: not at all 7. Trouble concentrating on things, such as reading the newspaper or watching television: not at all 8. Moving or speaking so slowly that other people could have noticed. Or the opposite - being so fidgety or restless that you have been moving around a lot more than usual: not at all 9. Thoughts that you would be better off or of hurting yourself in some way: not at all Total score: 0 Depression Screening Interpretation: Negative Depression Screening Done: Yes 13217 - PHQ-9 Billing: Yes Source: Developed by Drs. Bennett Clements, Disha Aguayo, Samir Champion and colleagues, with an educational carmelo from [employer]. Thrive Questionnaire Date Thrive assessed: 08/09/24 I am a: Patient What is your living situation today?: I have a steady place to live Within the past 12 months, did the food you bought not last and you didn't have the money to get more?: Never true Within the past 12 months, did you worry whether your food would run out before you got money to buy more?: Never true Do you have trouble paying for medicines?: No Do you have trouble getting transportation to medical appointments?: No Do you have trouble paying your heating and electricity bill?: No Do you have trouble taking care of your child, family member or friend?: No Do you have trouble with day-to-day activities such as bathing, preparing meals, shopping, managing finances, etc.?: No Are you currently unemployed and looking for a job?: No Please select the resources that you would like help with: None Currently or been in a relationship where the following occur: No concerns reported THRIVE Score: 0 AUDIT C Alcohol Use Questionnaire (AUDIT-C) 1. How often do you have a drink containing alcohol?: Never Total Score: 0 Score Reviewed/Action Taken: No DAFNE-7 AMB Questionnaire DAFNE-7 Date DAFNE - 7 assessed: 08/09/24 Feeling nervous, anxious, or on edge: 0 = Not at all Not being able to stop or control worryin = Not at all Worrying too much about different things: 0 = Not at all Trouble relaxin = Not at all Being so restless that it is hard to sit still: 0 = Not at all Becoming easily annoyed or irritable: 0 = Not at all Feeling afraid as if something awful might happen: 0 = Not at all Total DAFNE-7 score (0-4 normal; 5-9 mild; 10-14 moderate; 15-21 severe): 0 Source: Developed by Drs. Bennett Clements, Dsiha Aguayo, Samir Champion and colleagues, with an educational carmelo from [employer]. DAFNE-7 Assessment Billing DAFNE-7 Assessment Tool: DAFNE-7 Assessment 27351 Review of Systems Const All systems reviewed & are unremarkable except as noted in HPI and below Card Denies chest pain at rest, Denies chest pain with activity, Denies edema, Denies irregular heart rhythm, Denies claudication, Denies orthopnea, Denies paroxysmal nocturnal dyspnea and Denies slow heart rate Musc Reports arthralgias and Reports muscle weakness Physical exam (Primary Care) Vital Signs: Last Vital Signs BP 110/62 08/09/24 10:00 BMI result Body Mass Index 20.0 Tobacco/Smoking Status: Tobacco use Status Tobacco use date assessed 08/09/24 08/09/24 10:05 Patient Tobacco Use Status Never used Tobacco 08/09/24 10:05 e-Cigarette/Vaping Use Never Used 08/09/24 10:05 PHQ-9: PHQ-9 Score PHQ-9: Total score 0 08/09/24 10:27 Depression Screening Interpretation: Negative Thrive Assessment: Date of Thrive Assessment Date Thrive assessed 08/09/24 08/09/24 10:05 Currently or been in a relationship where the following occur: No concerns reported Resp Effort & Inspection: normal respiratory effort Auscultation: clear to auscultation bilaterally Cardio Jugular venous distension: no JVD Rate: regular rate Rhythm: regular rhythm Heart sounds: S1 normal heart sound present and S2 normal heart sound present Extrem General: Yes full ROM Coding Level of Care Code Est Pt Level 4 (39145) Complex EM visit Add On G2211 Diagnoses Tendinitis of right rotator cuff M75.81 Autoimmune thyroiditis E06.3 Pure hypercholesterolemia E78.00 B12 deficiency E53.8 Essential (primary) hypertension I10 Hypovitaminosis D E55.9 Additional Codes DAFNE-7 Assessment Billing - DAFNE-7 Assessment Tool: DAFNE-7 Assessment 24155 ([id number]) PHQ-9 - 42272 - PHQ-9 Billing: Yes ([id number]) Time Spent (min) 23 Assessment & Plan Assessment & Plan (1) Tendinitis of right rotator cuff: Code(s): M75.81 - Other shoulder lesions, right shoulder Category: Medical (2) Autoimmune thyroiditis: Code(s): E06.3 - Autoimmune thyroiditis Category: Medical (3) Pure hypercholesterolemia: Code(s): E78.00 - Pure hypercholesterolemia, unspecified Category: Medical (4) B12 deficiency: Code(s): E53.8 - Deficiency of other specified B group vitamins Category: Medical (5) Essential (primary) hypertension: Code(s): I10 - Essential (primary) hypertension Category: Medical (6) Hypovitaminosis D: Code(s): E55.9 - Vitamin D deficiency, unspecified Category: Medical Plan Management will focus on maintaining strict observation of kidney function, avoiding NSAIDs, and utilizing a topical gel for pain relief to protect renal status. The vitamin schedule should remain as currently implemented to manage her deficiency. Repeat thyroid function tests will be conducted to ensure optimal dosing of levothyroxine. A bone density test is planned to evaluate osteopenia. I will support her with lifestyle adjustments, incorporating appropriate physical therapy to enhance her mobility and pain management strategies. Continuous monitoring of blood pressure and lipid levels is instated to ensure stable control of her hypertension and hyperlipidemia. Patient was informed and verbally consented to the use of an ambient scribe for clinic note documentation during this visit. I discussed with the patient the decline in renal function, emphasizing the importance of avoiding NSAIDs and proceeding with safer alternatives like topical analgesics for pain. The patient was informed about the necessity of ongoing monitoring and the rationale behind her current medication adjustments for vitamin B12 and thyroid management. I clarified the need for testing to address osteoporosis concerns and recommended light activity, alongside physical therapy, to manage joint symptoms. We reviewed routine follow-ups and the importance of monitoring blood pressure and glucose levels as well. The patient expressed understanding and agreement with the current management plan and future diagnostic endeavors. Orders: Orders XR DEXA axial skeleton Today Z78.0 - Asymptomatic menopausal state Vitamin B12 and Folate Today E53.8 - Deficiency of other specified B group vitamins Complete Blood Count Auto Diff Today D64.9 - Anemia, unspecified IRON PROFILE Today D64.9 - Anemia, unspecified Thyroid Stimulating Hormone Today R79.89 - Other specified abnormal findings of blood chemistry MM tomosynthesis screening BI Today Z12.31 - Encounter for screening mammogram for malignant neoplasm of breast Lipid Panel Today E78.5 - Hyperlipidemia, unspecified Vitamin D 25-OH Total Today E55.9 - Vitamin D deficiency, unspecified Free T4 (Free Thyroxine) Today R79.89 - Other specified abnormal findings of blood chemistry Patient Instructions: - Continue alternating day vitamin B12 supplement as previously instructed. - Avoid NSAIDs; use prescribed topical gel for pain relief as directed. - Schedule and undergo repeat thyroid function tests for proper medication adjustment. - Arrange for and complete bone densitometry for osteopenia evaluation. - Engage in gentle physical activity and attend prescribed physical therapy sessions. - Monitor blood pressure routinely and maintain hypertension management regimen. - Follow up regularly for reassessment of kidney function and chronic condition management. - Contact the office if experiencing worsening symptoms or concerns regarding her health management.
[2024-08-09 10:00] VITALS: BP 110/62
--- OUTSIDE RECORDS SUMMARY | 2024-08-09 10:57 | XMS_ITS ---
Demographics Address [address] [place] [address] [address] [place] [address] Home Phone [phone] Preferred Language Unknown Marital Status Unknown Anabaptism Affiliation Unknown Race Unknown Additional Race(s) Unavailable Ethnic Group Unknown Author Name Yamilet WEISS Jollytarapaco tianna Ortiz Address [address] [place] [address] Phone [phone] [facility] Care Team Providers Care B Operator Name Role Phone Madiha Woodard Unavailable [phone] Group, [place] Unavailable [phone] Orders, [facility] Unavailable [phone] medline Unavailable [phone] JENNIFER GREGG Unavailable [phone] Reason for Referral Not Available Allergies, adverse reactions, alerts No known allergies History of medication use Medication Class Instructions Start Date End Date Loratadine 10 mg Tab TAKE 1 TABLET BY MO UTH DAILY 2021-06-27 No Data Available VITAMIN D3 2000UNIT CAPSULES TAKE 1 CAPS ULE BY MOUTH DAILY 2021-10-01 No Data Available Lisinopril 40 mg Tab TAKE 1 TABLET BY MO UTH DAILY 2021-12-08 No Data Available Megestrol Acetate 40 mg Tab TAKE 1 TABLE T BY MOUTH TWICE DAILY 2021-08-16 No Data Available Ketorolac Tromethamine 0.5 % Solution INSTILL 1 DROP IN RIGHT EYE FOUR TIMES DAILY 2022-07-14 No Data Available prednisoLONE Acetate 1 % Suspension SHAKE LIQUID AND INSTILL 1 DROP IN RIGHT EYE FOUR TIMES DAILY 2022-07-14 2023-01-05 Atorvastatin Calcium 20 mg Tab TAKE 1 TA BLET BY MOUTH AT BEDTIME 2022-08-03 No Data Available Folic Acid 1 mg Tab TAKE 1 TABLET BY BRIAN TH DAILY 2022-08-03 No Data Available Gentle Laxative 5 mg Tab del ayed rel TAKE 2 TABLETS BY MOUTH AT 12PM THE DAY BEFORE YOU RPROCEDURE FOR 1 DAY 2022-08-03 No Data Available Polyethylene Glycol 3350 17 GM/SCOOP Powder TAKE DIRECTED BY MOUTH THE DAY BEFORE YOUR PROCEDURE FOR 1 DAY 2022-08-03 2023-11-11 VITAMIN B-12 1000MCG TABLETS TAKE 1 TABL ET BY MOUTH EVERY DAY 2022-04-11 No Data Available hydroCHLOROthiazide 12.5 mg Tab TAKE 1 T ABLET BY MOUTH DAILY 2022-12-08 No Data Available Voltaren 1 % Gel 2 grams topically to affected area 4 times per day prn 2023-01-05 No Data Available Problem List Problem Status Onset Date Resolved Date Unspecified protein-calorie malnutrition Active 2022-03-12 N/A History of CVA (cerebrovascular accident) Active 2022-03-15 N/A 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 Acti ve 2022-03-15 N/A Vitamin B12 deficiency Active 2022-03-14 N/A Seasonal allergies Active 2022-03-15 N/A Urinary incontinence Active 2023-01-05 N/A Mild protein malnutrition Active 2023-01-05 N/ A Osteoarthritis, multiple sites Active 2023-01-05 N/A Other problems related to fl dical facilities and other health care Active 2023-11-11 N/A Hypertension Active 2022-03-14 N/A Encounters Encounters Type Facility Date of Service Diagnosis/Co mplaint Pain Assessment - NO pain present (1126F) [facility] [place] Pain Assessment - NO pain present (1126F) [facility] [place] Pain Assessment - NO pain present (1126F) [facility] [place] Pain Assessment - NO pain present (1126F) [facility] [place] Pain Assessment - NO pain present (1126F) [facility] [place] Pain Assessment - NO pain present (1126F) [facility] [place] Pain Assessment - NO pain present (1126F) [facility] [place] Unspecified protein-calorie malnutritionDeficiency of other specified B group vitaminsPrsnl hx of TIA (TIA), and cereb infrc w/o resid deficitsCataract secondary to ocular disorders, bilateralBody mass index (BMI) 19 or less, adult Estab. patient 30-39min; chronic exacerbation, 2 stable chronic or 1 acute illness add add modifier 95 for video, (do not use for phone, instead use 32691-77) [facility] ([place]) [place]23 Unspecified protein-calorie malnutritionMild protein-calorie malnutritionBody mass index (BMI) 19 or less, adultEssential (primary) hypertensionDeficiency of other specified B group vitaminsPrsnl hx of TIA (TIA), and cereb infrc w/o resid deficitsCataract secondary to ocular disorders, bilateralOther seasonal allergic rhinitisUnspecified urinary incontinencePolyosteoarthritis, unspecified Estab. patient 30-39min; chronic exacerbation, 2 stable chronic or 1 acute illness add add modifier 95 for video, (do not use for phone, instead use 52393-43) [facility] ([place] Estab. patient 30-39min; chronic exacerbation, 2 stable chronic or 1 acute illness add add modifier 95 for video, (do not use for phone, instead use 62126-63) [facility] [place] Estab. patient 30-39min; chronic exacerbation, 2 stable chronic or 1 acute illness add add modifier 95 for video, (do not use for phone, instead use 95407-37) [facility] [place] Estab. patient 30-39min; chronic exacerbation, 2 stable chronic or 1 acute illness add add modifier 95 for video, (do not use for phone, instead use 47155-85) [facility] [place] Estab. patient 30-39min; chronic exacerbation, 2 stable chronic or 1 acute illness add add modifier 95 for video, (do not use for phone, instead use 05883-99) [facility] ([place]) 01[place]/20[place] Estab. patient 30-39min; chronic exacerbation, 2 stable chronic or 1 acute illness add add modifier 95 for video, (do not use for phone, instead use 21261-97) [facility] [place]2023 Unspecified protein-calorie malnutritionEssential (primary) hypertensionMild protein-calorie malnutritionOther problems related to medical facilities and other health careDeficiency of other specified B group vitaminsPrsnl hx of TIA (TIA), and cereb infrc w/o resid deficitsCataract secondary to ocular disorders, bilateralOther seasonal allergic rhinitisUnspecified urinary incontinencePolyosteoarthritis, unspecified Estab. patient 30-39min; chronic exacerbation, 2 stable chronic or 1 acute illness add add modifier 95 for video, (do not use for phone, instead use 89988-20) [facility] [place] Estab. patient 30-39min; chronic exacerbation, 2 stable chronic or 1 acute illness add add modifier 95 for video, (do not use for phone, instead use 90932-13) [facility] [place] Estab. patient 30-39min; chronic exacerbation, 2 stable chronic or 1 acute illness add add modifier 95 for video, (do not use for phone, instead use 24718-66) [facility] [place] Estab. patient 30-39min; chronic exacerbation, 2 stable chronic or 1 acute illness add add modifier 95 for video, (do not use for phone, instead use 39295-09) [facility] [place] Estab. patient 30-39min; chronic exacerbation, 2 stable chronic or 1 acute illness add add modifier 95 for video, (do not use for phone, instead use 42335-74) [facility] [place] Estab. patient 30-39min; chronic exacerbation, 2 stable chronic or 1 acute illness add add modifier 95 for video, (do not use for phone, instead use 80121-11) [facility] [place] Estab. patient 30-39min; chronic exacerbation, 2 stable chronic or 1 acute illness add add modifier 95 for video, (do not use for phone, instead use 24792-95) [facility] ([place]2023 Vital Signs Date of Collection Vitals 2022-03-15 09:31:38 Height - 165.1 cmWei ght - 54.43 kgBody Mass Index (BMI) - 19.97 kg/m2 2023-01-05 13:20:19 Height - 162.56 cmWe ight - 52.62 kgBody Mass Index (BMI) - 19.91 kg/m2 2023-11-11 07:07:22 Height - 154.94 cmWe ight - 49.44 kgBody Mass Index (BMI) - 20.6 kg/m2Pain Scale - 0.0 {score} Social History Social History Social History Observation Description Effec tive Time Current Smoking Status Never smoker 2024-07-22 0 Sex Female History of Procedures Procedures Service Procedure code Service date Servicing provider Phone# Pain Assessment - NO pain present (1126F) 1126F 2022-03-15 No Data Available No Data A vailable Medication List Documented (1159F) 1159F 2022-03-15 No Data Available No Data Eliane ilable Medication Review by prescribing provider or pharmacist documented (1160F) 1160F 2022-03-15 No Data Available No Data Eliane ilable Functional Status Assessed (1170F) 1170F 2022-03-15 No Data Available No Data Avail able Advance Care Directive Advance care planning discussion documented in the medical record (1158F) 1158F 2022-03-15 No Data Available No Data Availa ble BMI obtained (3008F) 3008F 2022-03-15 No Data Availab le No Data Available New patient,40-59min; chronic exacerbation, 2 stable chronic or 1 acute illness add add modifier 95 for video (do not use for phone, instead use 33326-15) 26759 2022-03-15 No Data Available No Data Availa ble Estab. patient 30-39min; chronic exacerbation, 2 stable chronic or 1 acute illness add add modifier 95 for video, (do not use for phone, instead use 36127-27) 78973 2023-01-05 No Data Available No Data Availa ble Medication List Documented (1159F) 1159F 2023-01-05 No Data Available No Data Eliane ilable Medication Review by prescribing provider or pharmacist documented (1160F) 1160F 2023-01-05 No Data Available No Data Eliane ilable Pain Assessment - NO pain present (1126F) 1126F 2023-01-05 No Data Available No Data A vailable BMI obtained (3008F) 3008F 2023-01-05 No Data Availab le No Data Available Advance care planning discussed and documented ? advance care plan or surrogate decision-maker was documented in the medical record. (1123F) 1123F 2023-01-05 No Data Available No Data Availa ble Estab. patient 30-39min; chronic exacerbation, 2 stable chronic or 1 acute illness add add modifier 95 for video, (do not use for phone, instead use 41063-04) 56020 2023-11-11 No Data Available No Data Availa ble Medication List Documented (1159F) 1159F 2023-11-11 No Data Available No Data Eliane ilable Medication Review by prescribing provider or pharmacist documented (1160F) 1160F 2023-11-11 No Data Available No Data Eliane ilable Pain Assessment - NO pain present (1126F) 1126F 2023-11-11 No Data Available No Data A vailable BMI obtained (3008F) 3008F 2023-11-11 No Data Availab le No Data Available Advance Care Directive Advance care planning discussion documented in the medical record (1158F) 1158F 2023-11-11 No Data Available No Data Availa ble Advance care planning discussed and documented ? advance care plan or surrogate decision-maker was documented in the medical record. 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 2023-01-05 Cognition Status: Oriented to Person, Pl nadeen and Time 2023-01-05 ADL: Bathing Needs Assistanc e , Dressing Needs Assistance , Eating Independent , Ambulation Needs Assistance , Transferring Needs Assistance and Toileting Independent 2023-01-05 IADL: needs help with all IADLs Falls in last 6 Months: no 2023-01-05 Social Supports - # of Inter actions with Friends/Family in a typical week: daily with daughter 2023-01-05 lives alone 2023-11-11 ambulates with cane 2023-11-11 Mental Status Status Date A&Ox3 2022-03-15 Assessments Date of Service Assessments 2022-03-15 09:31:38 Unspecified protein- calorie malnutritionHypertensionVitamin B12 deficiencyHistory of CVA (cerebrovascular accident)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Seasonal allergies 2023-01-05 13:20:19 Unspecified protein- calorie malnutritionHypertensionVitamin B12 deficiencyHistory of CVA (cerebrovascular accident)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Seasonal allergiesMild protein malnutritionUrinary incontinenceOsteoarthritis, multiple sites 2023-11-11 07:07:22 Unspecified protein- calorie malnutritionVitamin B12 deficiencyHistory of CVA (cerebrovascular accident)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Seasonal allergiesMild protein malnutritionUrinary incontinenceHypertensionOsteoarthritis, multiple sitesOther problems related to medical facilities and other health care Plan of Care Date of Service Plans 2022-03-15 09:31:38 Pain Assessment - NO pain documented (1126F)Medication Review by prescribing provider or pharmacist documented (1160F)Medication List Documented (1159F)Functional Status Assessed (1170F)Advance Care Directive Advance care planning discussion documented in the medical record (1158F)BMI obtained (3008F)Televideo new patient,40-59min; chronic exacerbation, 2 stable chronic or 1 acute illness add modifier 95Continue to see PCP. Follow-up with [facility] as needed for any acute or disease education needs that may arise.BMI 19.97, daughter and patient report taking megestrol and vitamin B12 & D3 for weight gain and have recently seen success.suspectmanaged on lisinopril 20 mg dailymanaged on vitamin B12 1000 mcgestimate that CVA was 2018 and deny residual deficitspatient reported she is scheduled for surgery in 2 days, able to see only shadows, cannot read the tablet screen- daughter is present and helpingloratadine daily 2023-01-05 13:20:19 Medication Review by prescribing provider or pharmacist documented (1160F)Medication List Documented (1159F)Functional Status Assessed (1170F)Advance Care Directive Advance care planning discussion documented in the medical record (1158F)BMI obtained (3008F)Televideo 30-39min; chronic exacerbation, 2 stable chronic or 1 acute illness add modifier 95Advance care planning discussed and documented ? advance care plan or surrogate decision-maker was documented in the medical record. (1123F)Continue to see PCP. Follow-up with [facility] as needed for any acute or disease education needs that may arise.BMI 19.97, daughter and patient report taking megestrol and vitamin B12 & D3 for weight gain and have recently seen success.reports bp taken at PCP office visit 10/2022-no records available will f/u c pcp q 4 mnths managed on lisinopril 20 mg dailymanaged on vitamin B12 1000 mcgestimate that CVA was 2018 and deny residual deficitspatient reported she is scheduled for surgery in 2 days, able to see only shadows, cannot read the tablet screen- daughter is present and helpingloratadine dailycontinues to follow c PCPrecommend high protein supplement shakeadult pull up briefs (M), uses one per night, chux, wipes,at risk for falls Fall prevention TIPS: Wear sensible shoes. Remove home hazards (Get rid of all rugs/mats in your home). Light up your living space (keep a flash light next to your bed for night time). Use assistive devices. 2023-11-11 07:07:22 Medication Review by prescribing provider or pharmacist documented (1160F)Medication List Documented (1159F)Functional Status Assessed (1170F)Advance Care Directive Advance care planning discussion documented in the medical record (1158F)BMI obtained (3008F)Televideo 30-39min; chronic exacerbation, 2 stable chronic or 1 acute illness add modifier 95Advance care planning discussed and documented ? advance care plan or surrogate decision-maker was documented in the medical record. (1123F)Pain Assessment - NO pain documented (1126F)Continue to see PCP. Follow-up with [facility] as needed for any acute or disease education needs that may arise.BMI 19.97, daughter and patient report taking megestrol and vitamin B12 & D3 for weight gain and have recently seen success.managed on vitamin B12 1000 mcgestimate that CVA was 2018 and deny residual deficitspatient reported she is scheduled for surgery in 2 days, able to see only shadows, cannot read the tablet screen- daughter is present and helpingloratadine dailycontinues to follow c PCPrecommend high protein supplement shakeadult pull up briefs (M), uses one per night, chux, wipes,reports bp taken at PCP office visit 10/2022-no records available will f/u c pcp q 4 mnths managed on lisinopril 20 mg 11/10 lisinopril increased to 40mg states she noticed a cough since aware to call pcp today to d/c and change class of medication as cough may be a side effectat risk for falls Fall prevention TIPS: Wear sensible shoes. Remove home hazards (Get rid of all rugs/mats in your home). Light up your living space (keep a flash light next to your bed for night time). Use assistive devices.HYPERTENSION CONTINGENCY PLANMember to call for the following symptoms: BP >180/100??/ HR <50??Planned intervention: Assess for signs of end organ damage (headache, vision changes, chest pain)/ Flush Tester on proper BP monitoring technique and reassess/ Encourage low sodium diet/ Discuss breathing exercises/ Encourage medication adherence Goals Date Goal 2022-03-15 Remember to Charge y our tablet so it's ready if you need to connect with [facility]. 2022-03-15 Call me if you need to be connected to a licensed social worker, you become ill and cannot get ahold of your PCP 2022-03-15 Keep it up- great lani zamarripa following a healthy diet and staying active 2023-11-11 cont meds as prescri bed 2023-11-11 call if you feel ill , have any questions or concerns 2023-11-11 no new concerns at t his time Health Concerns Date Concern 2023-11-11 Visit completed enrike buchanan audio/video. Patient/Guardian agreed to visit via telehealth. Today, patient has chief complaint of: follow up care and comprehensive review.Reviewed Allergies, Medications, Active Medical conditions, past medical/surgical history, Social history. 2023-11-11 Advance Care PlanDo you have an Advance Care Plan? YesDo you have a Durable Power of Harp Regulator for Healthcare, or Healthcare Proxy? NoIf so, Who? Iza Geronimo (Daughter) Code Status: Resuscitate /CPR/ Full codeOther Details of discussion (Who was present, patients description of wishes/goals): 2023-11-11 Most recent hospital stay(s) or ER visit(s) and precipitating factors: denies 2023-11-11 Open HEDIS Measure r yokasta: done
== END 2024-08-09 10:38 | disposition home or self-care (01) ==
LOC: HO.HMCH 09:50
PROVIDERS: PCP Internal Medicine; Visit Provider Internal Medicine
DX: M75.81 Other shoulder lesions, right shoulder (principal); E06.3 Autoimmune thyroiditis; E78.00 Pure hypercholesterolemia, unspecified; E53.8 Deficiency of other specified B group vitamins; I10 Essential (primary) hypertension; E55.9 Vitamin D deficiency, unspecified

== ENCOUNTER → 2024-08-09 09:49 | Outpatient (BNVA) | payer OTHER, SELFPAY | PROVIDERS: PCP Internal Medicine; Visit Provider Internal Medicine | DX: M75.81 Other shoulder lesions, right shoulder (principal); E06.3 Autoimmune thyroiditis; E78.00 Pure hypercholesterolemia, unspecified; E53.8 Deficiency of other specified B group vitamins; E55.9 Vitamin D deficiency, unspecified; I10 Essential (primary) hypertension | CPT/HCPCS: 96127; 99212 ==

== ENCOUNTER 2024-11-20 13:29 | Outpatient (REF) | payer OTHER, SELFPAY ==
[2024-11-20 13:41] LABS: MANUAL DIFF FLAG NO
[2024-11-20 14:01] LABS: Hematocrit 23.9 % (37.0-47.0); Hemoglobin 7.3 g/dl (12.0-16.0); Imm Gran Abs Auto 0.01 X10*3/uL (0.00-0.03); Imm Gran Pct Auto 0.2 % (0.0-0.4); Lymphocytes Absolute Auto 2.1 X10*3/uL (1.2-4.9); Mean Corpuscular HGB Conc 30.5 g/dl (31.0-35.0); Mean Corpuscular Hemoglobin 23.9 pg (27.0-33.0); Mean Corpuscular Volume 78.1 fL (80.0-98.0); NRBC Abs Auto 0.000 X10*3/uL (0.0-0.012); NRBC Pct Auto 0.0 /100WBC (0.0-0.2); Platelet Count 273 X10*3/uL (160-400); Red Blood Count 3.06 X10*6/uL (4.20-5.50); White Blood Count 5.8 X10*3/uL (4.8-10.8)
[2024-11-20 14:34] LABS: Alanine Aminotransferase 15 U/L (0-31); Albumin Level 4.5 g/dL (3.5-5.0); Alkaline Phosphatase 88 U/L (39-117); Anion Gap 14 (12-20); Aspartate Amino Transferase 26 U/L (5-31); Blood Urea Nitrogen 23 mg/dL (9-16); Calcium 9.3 mg/dL (8.4-10.2); Carbon Dioxide 23 mmol/L (22-29); Chloride 109 mmol/L (96-108); Cholesterol 157 mg/dL (<200); Estimated Glomerular Filt Rate 29; HDL Cholesterol 46 mg/dL (>40); Iron 17 mcg/dL (30-160); Magnesium 1.8 mg/dL (1.6-2.6); Percent Iron Saturation 5 % (15-50); Potassium 5.0 mmol/L (3.3-5.1); Sodium 141 mmol/L (135-145); Total Iron Binding Capacity 352 mcg/dL (228-428); Total Protein 7.4 g/dL (6.5-8.0); Triglycerides 140 mg/dL (<150); Unsaturated Iron Binding 335 ug/dL
--- OUTSIDE RECORDS SUMMARY | 2024-11-20 14:39 | XMS_ITS ---
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 2022-03-15 N/A teressa ent reported she is scheduled for surgery in 2 days, able to see only shadows, cannot read the tablet screen- daughter is present and helping Vitamin B12 deficiency Active 2022-03-14 N/A ma naged on vitamin B12 1000 mcg Seasonal allergies Active 2022-03-15 N/A lorata dine daily Urinary incontinence Active 2023-01-05 N/A adul t pull up briefs (M), uses one per night, chux, wipes, Mild protein malnutrition Active 2023-01-05 N/A continues to follow c PCPrecommend high protein supplement shake Osteoarthritis, multiple sites Active 2023-01-05 N/A at risk for fall s Fall prevention TIPS: Wear sensible shoes. Remove home hazards (Get rid of all rugs/mats in your home). Light up your living space (keep a flash light next to your bed for night time). Use assistive devices. Other problems related to medical facilities and other health care Active 2023-11-11 N/A HYPERTENSIO N CONTINGENCY PLANMember to call for the following symptoms: BP >180/100 / HR <50 Planned intervention: Assess for signs of end organ damage (headache, vision changes, chest pain)/ Neurology Specialist on proper BP monitoring technique and reassess/ Encourage low sodium diet/ Discuss breathing exercises/ Encourage medication adherence Hypertension Active 2022-03-14 N/A reports bp t lluviaen at PCP office visit 10/2022-no records available will f/u c pcp q 4 mnths managed on lisinopril 20 mg 11/10 lisinopril increased to 40mg states she noticed a cough since aware to call pcp today to d/c and change class of medication as cough may be a side effect Encounters Encounters Type Facility Date of Service Diagnosis/Co mplaint Pain Assessment - NO pain present (1126F) [facility] [place] Pain Assessment - NO pain present (1126F[place] [facility] [place] Pain Assessment - NO pain present (1126F[place] [facility] [place] Pain Assessment - NO pain present (1126F) [facility] [place] Pain Assessment - NO pain present (1126F) [facility] [place] Pain Assessment - NO pain present (1126F) [facility] [place] Pain Assessment - NO pain present (1126F) [facility] [place] Unspecified protein-calorie malnutritionDeficiency of other specified B group vitaminsPrsnl hx of TIA (TIA), and cereb infrc w/o resid deficitsCataract secondary to ocular disorders, bilateralBody mass index (BMI) 19 or less, adult Estab. patient 30-39min; chronic exacerbation, 2 stable chronic or 1 acute illness add add modifier 95 for video, (do not use for phone, instead use 30948-12) [facility] [place] Unspecified protein-calorie malnutritionMild protein-calorie malnutritionBody mass [...] (do not use for phone, instead use 74309-09) [facility] [place] Estab. patient 30-39min; chronic exacerbation, 2 stable chronic or 1 acute illness add add modifier 95 for video, (do not use for phone, instead use 80070-33) [facility] [place] Estab. patient 30-39min; chronic exacerbation, 2 stable chronic or 1 acute illness add add modifier 95 for video, (do not use for phone, instead use 71388-05) [facility] [place] Estab. patient 30-39min; chronic exacerbation, 2 stable chronic or 1 acute illness add add modifier 95 for video, (do not use for phone, instead use 79472-97) [facility] [place] Estab. patient 30-39min; chronic exacerbation, 2 stable chronic or 1 acute illness add add modifier 95 for video, (do not use for phone, instead use 54222-15) [facility] [place] Estab. patient 30-39min; chronic exacerbation, 2 stable chronic or 1 acute illness add add modifier 95 for video, (do not use for phone, instead use 58838-17) [facility] [place] Unspecified protein-calorie malnutritionEssential (primary) [...] (do not use for phone, instead use 81280-64) [facility] [place] Estab. patient 30-39min; chronic exacerbation, 2 stable chronic or 1 acute illness add add modifier 95 for video, (do not use for phone, instead use 43467-53) [facility] [place] Estab. patient 30-39min; chronic exacerbation, 2 stable chronic or 1 acute illness add add modifier 95 for video, (do not use for phone, instead use 99928-91) [facility] ([place] Estab. patient 30-39min; chronic exacerbation, 2 stable chronic or 1 acute illness add add modifier 95 for video, (do not use for phone, instead use 15489-29) [facility] [place] Estab. patient 30-39min; chronic exacerbation, 2 stable chronic or 1 acute illness add add modifier 95 for video, (do not use for phone, instead use 63219-35) [facility] [place] Estab. patient 30-39min; chronic exacerbation, 2 stable chronic or 1 acute illness add add modifier 95 for video, (do not use for phone, instead use 69897-29) [facility] [place]2023 Estab. patient 30-39min; chronic exacerbation, 2 stable chronic or 1 acute illness add add modifier 95 for video, (do not use for phone, instead use 39819-10) [facility] [place]2023 Vital Signs Date of Collection Vitals [...] tive Time Current Smoking Status Never smoker 1 Sex Female History of Procedures Procedures Service [...] (do not use for phone, instead use 39180-71) [id number] 2022-03-15 No Data Available No Data Availa ble Estab. patient 30-39min; chronic exacerbation, 2 stable chronic or 1 acute illness add add modifier 95 for video, (do not use for phone, instead use 82526-07) 16088 2023-01-05 No Data Available No Data Availa [...] Available Advance care planning discussed and documented advance care plan or surrogate decision-maker was documented in the medical record. (1123F) 1123F 2023-01-05 No Data Available No Data Availa ble Estab. patient 30-39min; chronic exacerbation, 2 stable chronic or 1 acute illness add add modifier 95 for video, (do not use for phone, instead use 83766-88) 90559 2023-11-11 No Data Available No Data Availa [...] ble Advance care planning discussed and documented advance care plan or surrogate decision-maker was documented in the medical record. 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 (1123F)Pain Assessment - NO pain documented (1126F)Continue to see PCP. [facility] or disease [...] to follow c PCPrecommend high protein supplement clara pull up briefs (M), uses one per [...] to call for the following symptoms: BP >180/100 / HR <50 Planned intervention: Assess for signs of end organ damage (headache, vision changes, chest pain)/ Neurology Specialist on proper BP monitoring technique and reassess/ Encourage low sodium diet/ Discuss breathing exercises/ Encourage medication adherence Goals Date Goal 2022-03-15 Remember to Charge y our tablet so it's ready if you need [facility]. 2022-03-15 Call me if you need to be connected to a social media content manager, you become ill and cannot get ahold of your PCP 2022-03-15 Keep it up- cortney zamarripa following a healthy diet and staying [...] YesDo you have a Durable Power of Vinyl Hanger for Healthcare, or Healthcare Proxy? NoIf so, Who? Iza Geronimo (Daughter) Code Status: Resuscitate /CPR/ Full codeOther Details of discussion (Who was present, patients description of wishes/goals): 2023-11-11 Most recent hospital stay(s) or ER visit(s) and precipitating factors: denies 2023-11-11 Open HEDIS Measure ike [place]: done
[2024-11-20 14:53] LABS: Free T4 (Free Thyroxine) 0.92 ng/dL (0.71-1.85); Thyroid Stimulating Hormone 2.04 uIU/mL (0.32-4.0)
[2024-11-20 14:56] LABS: Folate 14.9 ng/mL (> or = 4.0); Vitamin B12 688 pg/mL (200-900)
== END 2024-11-20 13:30 | disposition home or self-care (01) ==
LOC: HO.LAB 13:29
PROVIDERS: PCP Internal Medicine; Visit Provider Internal Medicine
DX: D64.9 Anemia, unspecified (principal); I10 Essential (primary) hypertension; R79.89 Other specified abnormal findings of blood chemistry; E78.5 Hyperlipidemia, unspecified; R25.2 Cramp and spasm; E53.8 Deficiency of other specified B group vitamins; E55.9 Vitamin D deficiency, unspecified
CPT/HCPCS: 36415; 80053; 80061; 82306; 82607; 82746; 83540; 83735; 84439; 84443; 85025

== ENCOUNTER 2024-11-29 14:30 | Outpatient (AMB) | payer OTHER, SELFPAY ==
[2024-11-29 14:35] VITALS: BP 132/74; BMI 20.4
--- NOTE | 2024-11-29 14:35 | A.OFFPC_ITS ---
Vital Signs 11/29/24 14:35 Height 5 ft 1 in Weight 108 lb BMI 20.4 BP 132/74 Blood Pressure Location Lt brachial Position Sitting Intake Visit Reasons: Annual physical Intake Note: Patient here for a physical exam Laboratory Apparatus Glass Grinder Required: No Accompanied by: Grand Child Allergies No Known Allergies (No Known Allergies*) Allergy (Verified 11/29/24 14:47) Medication List - Last Reconciled 11/29/24 by Elizabeth Melchor MD acetaminophen (Tylenol Extra Strength) 1,000 mg PO Q6H PRN atorvastatin 40 mg PO BEDTIME 90 days blood pressure monitor As directed cholecalciferol (vitamin D3) 25 mcg PO DAILY 90 days cyanocobalamin (vitamin B-12) 1,000 mcg PO .every other day 90 days ferrous sulfate 325 mg PO TID 90 days folic acid 1 mg PO DAILY 90 days hydrochlorothiazide 12.5 mg PO DAILY 90 days levothyroxine 25 mcg PO DAILY 90 days lisinopril 40 mg PO DAILY 90 days loratadine 10 mg PO DAILY 30 days [Wheel chair As directed] Tobacco use date assessed: 08/09/24 Dental Screening Dental Screen Date: 08/09/24 HPI HPI Comments History of Present Illness Details The patient is a 74-year-old female presenting for a routine check-up and management of chronic conditions. The patient has a history of anemia, with hemoglobin levels dropping from 10.8 last year to 7.3 currently. She denies any visible bleeding and reports feeling out of breath, which is attributed to the anemia. Iron supplementation is being taken three times a day to address this issue. The patient has chronic kidney disease, with a decrease in GFR from 38 last year to 29 currently. She has an upcoming appointment with a shell plater to further evaluate her renal function. The patient has a history of cataract surgery and bilateral shoulder surgery. Her medication regimen includes atorvastatin, vitamin D, B12, iron, folic acid, hydrochlorothiazide, levothyroxine, and lisinopril. She is compliant with her medications, taking levothyroxine separately in the morning. The patient does not smoke or consume alcohol. Her family history includes asthma in her father and stomach cancer in her mother. [facility] Medical History (Updated 11/29/24 @ 14:54 by Elizabeth Melchor MD) Pure hypercholesterolemia COVID-19 Annual physical exam Allergic rhinitis Malnourished Chronic fatigue B12 deficiency Essential (primary) hypertension Surgical History Cataract History of shoulder surgery Family History Father Asthma Mother Stomach cancer Brother Hypertension Social History Housing: Apartment Alcohol intake: never Patient Tobacco Use Status: Never used Tobacco e-Cigarette/Vaping Use: Never Used Second Hand Smoke Exposure: No service: No Current occupational status: disabled Cognitive needs: No Hearing needs: No Vision needs: No Questionnaire PHQ-9 Over the last 2 weeks, how often have you been bothered by any of the following problems? 1. Little interest or pleasure in doing things: not at all 2. Feeling down, depressed, or hopeless: not at all 3. Trouble falling or staying asleep, or sleeping too much: not at all 4. Feeling tired or having little energy: not at all 5. Poor appetite or overeating: not at all 6. Feeling bad about yourself - or that you are a failure or have let yourself or your family down: not at all 7. Trouble concentrating on things, such as reading the newspaper or watching television: not at all 8. Moving or speaking so slowly that other people could have noticed. Or the opposite - being so fidgety or restless that you have been moving around a lot more than usual: not at all 9. Thoughts that you would be better off or of hurting yourself in some way: not at all Total score: 0 Depression Screening Interpretation: Negative Depression Screening Done: Yes 76556 - PHQ-9 Billing: Yes Source: Developed by Drs. Bennett Clements, Disha Aguayo, Samir Champion and colleagues, with an educational carmelo from [employer]. Thrive Questionnaire Date Thrive assessed: 08/09/24 I am a: Parent/Caregiver What is your living situation today?: I have a steady place to live Within the past 12 months, did the food you bought not last and you didn't have the money to get more?: I choose not to answer this question Within the past 12 months, did you worry whether your food would run out before you got money to buy more?: I choose not to answer this question Do you have trouble paying for medicines?: No Do you have trouble getting transportation to medical appointments?: No Do you have trouble paying your heating and electricity bill?: No Do you have trouble taking care of your child, family member or friend?: I choose not to answer this question Do you have trouble with day-to-day activities such as bathing, preparing meals, shopping, managing finances, etc.?: I choose not to answer this question Are you currently unemployed and looking for a job?: I choose not to answer this question Are you interested in more education?: I choose not to answer this question Please select the resources that you would like help with: None Currently or been in a relationship where the following occur: I choose not to answer THRIVE Score: 0 AUDIT C Alcohol Use Questionnaire (AUDIT-C) 1. How often do you have a drink containing alcohol?: Never Total Score: 0 Score Reviewed/Action Taken: No DAFNE-7 AMB Questionnaire DAFNE-7 Date DAFNE - 7 assessed: 08/09/24 Feeling nervous, anxious, or on edge: 0 = Not at all Not being able to stop or control worryin = Not at all Worrying too much about different things: 0 = Not at all Trouble relaxin = Not at all Being so restless that it is hard to sit still: 0 = Not at all Becoming easily annoyed or irritable: 0 = Not at all Feeling afraid as if something awful might happen: 0 = Not at all Total DAFNE-7 score (0-4 normal; 5-9 mild; 10-14 moderate; 15-21 severe): 0 Source: Developed by Drs. Bennett Clements, Disha Aguayo, Samir Champion and colleagues, with an educational carmelo from [employer]. DAFNE-7 Assessment Billing DAFNE-7 Assessment Tool: DAFNE-7 Assessment 79036 Review of Systems Const All systems reviewed & are unremarkable except as noted in HPI and below Card Denies chest pain at rest, Denies chest pain with activity, Denies edema, Denies irregular heart rhythm, Denies claudication, Denies dyspnea, Denies dyspnea on exertion, Denies orthopnea, Denies paroxysmal nocturnal dyspnea and Denies slow heart rate Resp Denies cough, Denies dyspnea and Denies dyspnea on exertion GI Denies abdominal pain, Denies change in bowel habits, Denies excessive flatus, Denies nausea and Denies vomiting Denies urinary incontinence, Denies urinary hesitancy and Denies urinary urgency Musc Denies abnormal gait, Denies atrophy, Denies deformity and Denies limited range of motion Neuro Denies abnormal gait, Denies behavioral changes and Denies lack of coordination Psych Denies behavioral changes Physical exam (Primary Care) Vital Signs: Last Vital Signs BP 132/74 11/29/24 14:35 BMI result Body Mass Index 20.4 Tobacco/Smoking Status: Tobacco use Status Tobacco use date assessed 08/09/24 11/29/24 14:36 Patient Tobacco Use Status Never used Tobacco 11/29/24 14:36 e-Cigarette/Vaping Use Never Used 11/29/24 14:36 PHQ-9: PHQ-9 Score PHQ-9: Total score 0 11/29/24 14:41 Depression Screening Interpretation: Negative Thrive Assessment: Date of Thrive Assessment Date Thrive assessed 08/09/24 11/29/24 14:36 Currently or been in a relationship where the following occur: I choose not to answer HENMT Head: Yes normal to inspection, Yes normocephalic and Yes atraumatic Ears: external ears normal Eyes General: appearance normal, both eyes and all related structures Eyelids: Yes eyelids normal Conjunctivae: conjunctivae normal Neck Neck: Yes normal visual inspection and Yes supple Resp Effort & Inspection: normal respiratory effort Auscultation: clear to auscultation bilaterally Cardio Jugular venous distension: no JVD Rate: regular rate Rhythm: regular rhythm Heart sounds: S1 normal heart sound present and S2 normal heart sound present GI Inspection: Yes normal to inspection Palpation (GI): Soft to palpation and nontender Auscultation: normal bowel sounds Skin General skin exam: no rashes or lesions noted Neuro General: no focal motor deficits Extrem General: Yes full ROM Psych Appearance: grossly normal Coding Level of Care Code Est Pt Level 3 (86349) Est Pt Prev Care >65y(48900) Diagnoses Physical exam Z00.00 CKD (chronic kidney disease) stage 4, GFR 15-29 ml/min N18.4 Anemia D64.9 Additional Codes PHQ-9 - 39259 - PHQ-9 Billing: Yes ([id number]) DAFNE-7 Assessment Billing - DAFNE-7 Assessment Tool: DAFNE-7 Assessment 15511 ([id number]) Time Spent (min) 31 Assessment & Plan Assessment & Plan (1) Physical exam: Code(s): Z00.00 - Encounter for general adult medical examination without abnormal findings Category: Medical (2) CKD (chronic kidney disease) stage 4, GFR 15-29 ml/min: Code(s): N18.4 - Chronic kidney disease, stage 4 (severe) Category: Medical (3) Anemia: Code(s): D64.9 - Anemia, unspecified Category: Medical Plan The patient will continue with iron supplementation to address anemia and will be referred to a website/blog editor for further evaluation of hemoglobin levels. She is scheduled to see a shell plater to assess her declining renal function, with a focus on understanding the impact of medications and age on her GFR. Her current medication regimen will be maintained, ensuring adherence to levothyroxine administration guidelines. A bone density scan has been recommended to evaluate her bone health. Patient was informed and verbally consented to the use of an ambient scribe for clinic note documentation during this visit. Orders: Orders XR DEXA axial skeleton Today Z78.0 - Asymptomatic menopausal state MM tomosynthesis screening BI Today Z12.31 - Encounter for screening mammogram for malignant neoplasm of breast Referrals Hematology & Oncology Referral D64.9 - Anemia, unspecified
--- OUTSIDE RECORDS SUMMARY | 2024-11-29 14:38 | XMS_ITS ---
Demographics Address [address] [place] [address] [address] [place] [address] Home Phone [phone] Preferred Language Unknown Marital Status Unknown Congregational Affiliation Unknown Race Unknown Additional Race(s) Unavailable Ethnic Group Unknown Author Name Yamilet WEISS Jollytarapaco tianna Ortiz Address [address] [place] [address] Phone [phone] [facility] Care Team Providers Care Emergency Management Specialist Name Role Phone Madiha Woodard Unavailable [phone] [employer] Unavailable [phone] Orders, [employer] Unavailable [phone] medline Unavailable [phone] JENNIFER GREGG Unavailable [phone] Reason for Referral Not Available Allergies, adverse [...] organ damage (headache, vision changes, chest pain)/ Vaccine Customer Representative on proper BP monitoring technique and reassess/ [...] Pain Assessment - NO pain present (1126F) [facility] [place] Pain Assessment - NO pain present (1126F) [facility] [place] Pain Assessment - NO pain present (1126F) [facility] [place] Pain Assessment - NO pain present (1126F) [facility] [place] Pain Assessment - NO pain present (1126F) [facility] [place] Pain Assessment - NO pain present (1126F) [facility] [place] Pain Assessment - NO pain present (1126F) [facility] [place] Unspecified protein-calorie malnutritionDeficiency of other specified B group vitaminsPrsnl hx of TIA (TIA), and cereb infrc w/o resid deficitsCataract secondary to ocular disorders, bilateralBody mass index (BMI) 19 or less, adult Estab. patient 30-39min; chronic exacerbation, 2 stable chronic or 1 acute illness add add modifier 95 for video, (do not use for phone, instead use 30977-63) [facility] [place] Unspecified protein-calorie malnutritionMild protein-calorie malnutritionBody [...] (do not use for phone, instead use 01425-36) [facility] [place] Estab. patient 30-39min; chronic exacerbation, 2 stable chronic or 1 acute illness add add modifier 95 for video, (do not use for phone, instead use 54175-12) [facility] ([place]) 01/05/20[place] Estab. patient 30-39min; chronic exacerbation, 2 stable chronic or 1 acute illness add add modifier 95 for video, (do not use for phone, instead use 16488-05) [facility] [place] Estab. patient 30-39min; chronic exacerbation, 2 stable chronic or 1 acute illness add add modifier 95 for video, (do not use for phone, instead use 25918-90) [facility] [place] Estab. patient 30-39min; chronic exacerbation, 2 stable chronic or 1 acute illness add add modifier 95 for video, (do not use for phone, instead use 47907-05) [facility] [place] Estab. patient 30-39min; chronic exacerbation, 2 stable chronic or 1 acute illness add add modifier 95 for video, (do not use for phone, instead use 50665-62) [facility] [place]2023 Unspecified protein-calorie malnutritionEssential (primary) hypertensionMild [...] (do not use for phone, instead use 89067-52) [facility] [place] Estab. patient 30-39min; chronic exacerbation, 2 stable chronic or 1 acute illness add add modifier 95 for video, (do not use for phone, instead use 74739-25) [facility] [place] Estab. patient 30-39min; chronic exacerbation, 2 stable chronic or 1 acute illness add add modifier 95 for video, (do not use for phone, instead use 55470-34) [facility] ([place] Estab. patient 30-39min; chronic exacerbation, 2 stable chronic or 1 acute illness add add modifier 95 for video, (do not use for phone, instead use 95469-82) [facility] [place]2023 Estab. patient 30-39min; chronic exacerbation, 2 stable chronic or 1 acute illness add add modifier 95 for video, (do not use for phone, instead use 01162-63) [facility] [place] Estab. patient 30-39min; chronic exacerbation, 2 stable chronic or 1 acute illness add add modifier 95 for video, (do not use for phone, instead use 94605-61) [facility] [place]23 Estab. patient 30-39min; chronic exacerbation, 2 stable chronic or 1 acute illness add add modifier 95 for video, (do not use for phone, instead use 16926-02) [facility] ([place] 11/[place]/2023 Vital Signs Date of Collection Vitals [...] tive Time Current Smoking Status Never smoker 2024-11-20 0 Sex Female History of Procedures Procedures [...] (do not use for phone, instead use 32179-21) [id number] 2022-03-15 No Data Available No Data Availa ble Estab. 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 [facility] [...] organ damage (headache, vision changes, chest pain)/ Vaccine Customer Representative on proper BP monitoring technique and reassess/ Encourage low sodium diet/ Discuss breathing exercises/ Encourage medication adherence Goals Date Goal 2022-03-15 Remember to Charge y our tablet so it's ready if you need to [facility] with [facility]. 2022-03-15 Call me if you need to be connected to a social sciences instructor, you become ill and cannot get ahold [...] YesDo you have a Durable Power of Public Policy Manager for Healthcare, or Healthcare Proxy? NoIf so, Who? Iza Geronimo (Daughter) Code Status: Resuscitate /CPR/ Full codeOther Details of discussion (Who was present, patients description of wishes/goals): 2023-11-11 Most recent hospital stay(s) or ER visit(s) and precipitating factors: denies 2023-11-11 Open HEDIS Measure ike templeton: done
== END 2024-11-29 14:59 | disposition home or self-care (01) ==
LOC: HO.HMCH 14:31
PROVIDERS: PCP Internal Medicine; Visit Provider Internal Medicine
DX: Z00.00 Encounter for general adult medical examination without abnormal findings (principal); N18.4 Chronic kidney disease, stage 4 (severe); D64.9 Anemia, unspecified

== ENCOUNTER → 2024-11-29 14:30 | Outpatient (BNVA) | payer OTHER, SELFPAY | PROVIDERS: PCP Internal Medicine; Visit Provider Internal Medicine | DX: Z00.00 Encounter for general adult medical examination without abnormal findings (principal); N18.4 Chronic kidney disease, stage 4 (severe); D64.9 Anemia, unspecified | CPT/HCPCS: 96127; 99212; 99397 ==

== ENCOUNTER → 2024-12-13 13:36 | Outpatient (BNV) | payer OTHER, SELFPAY | PROVIDERS: PCP Internal Medicine; Referring Provider Student in an Organized Health Care Education/Training Program; Visit Provider Nurse Practitioner Family | DX: D64.9 Anemia, unspecified (principal) | CPT/HCPCS: 99204 ==

== ENCOUNTER 2024-12-21 13:43 | Outpatient (AMB) | payer OTHER, SELFPAY ==
--- OUTSIDE RECORDS SUMMARY | 2024-12-21 13:45 | XMS_ITS ---
Demographics Address [address] [place] [address] [address] [place] [address] Home Phone [phone] Preferred Language Unknown Marital Status Unknown Buddhism Affiliation Unknown Race Unknown Additional Race(s) Unavailable Ethnic Group Unknown Author Name Yamilet WEISS Jollytarapaco tianna Ortiz Address [address] [place] [address] Phone [phone] [facility] Care Team Providers Care Qa Reviewer Name Role Phone Madiha Woodard Unavailable [phone] [employer] Unavailable [phone] Orders, [employer] Unavailable [phone] med[facility] Unavailable [phone] JENNIFER GREGG Unavailable [phone] Reason for Referral Not Available Allergies, adverse [...] organ damage (headache, vision changes, chest pain)/ Supply Chain Development Manager on proper BP monitoring technique and reassess/ [...] Pain Assessment - NO pain present (1126F) [facility] [place] Pain Assessment - NO pain present (1126F) [facility] [place] Pain Assessment - NO pain present (1126F) [facility] [place] Pain Assessment - NO pain present (1126F) [facility] [place] Pain Assessment - NO pain present (1126F) [facility] [place] Pain Assessment - NO pain present (1126F) [facility] [place] Pain Assessment - NO pain present (1126F) [facility] [place] Unspecified protein-calorie malnutritionDeficiency of other specified B group vitaminsPrsnl hx of TIA (TIA), and cereb infrc w/o resid deficitsCataract secondary to ocular disorders, bilateralBody mass index (BMI) 19 or less, adult Estab. patient 30-39min; chronic exacerbation, 2 stable chronic or 1 acute illness add add modifier 95 for video, (do not use for phone, instead use 01557-09) [facility] [place]20[place] Unspecified protein-calorie malnutritionMild protein-calorie [...] (do not use for phone, instead use 19374-41) [facility] [place] 01[place]20[place] Estab. patient 30-39min; chronic exacerbation, 2 stable chronic or 1 acute illness add add modifier 95 for video, (do not use for phone, instead use 84234-31) [facility] ([place]) 01/05/2023 Estab. patient 30-39min; chronic exacerbation, 2 stable chronic or 1 acute illness add add modifier 95 for video, (do not use for phone, instead use 53029-97) [facility] ([place] 01[place]20[place] Estab. patient 30-39min; chronic exacerbation, 2 stable chronic or 1 acute illness add add modifier 95 for video, (do not use for phone, instead use 04577-41) [facility] [place] Estab. patient 30-39min; chronic exacerbation, 2 stable chronic or 1 acute illness add add modifier 95 for video, (do not use for phone, instead use 27386-87) [facility] [place] Estab. patient 30-39min; chronic exacerbation, 2 stable chronic or 1 acute illness add add modifier 95 for video, (do not use for phone, instead use 00549-98) [facility] [place]2023 Unspecified protein-calorie malnutritionEssential (primary) [...] (do not use for phone, instead use 22791-76) [facility] [place] Estab. patient 30-39min; chronic exacerbation, 2 stable chronic or 1 acute illness add add modifier 95 for video, (do not use for phone, instead use 44356-51) [facility] [place] Estab. patient 30-39min; chronic exacerbation, 2 stable chronic or 1 acute illness add add modifier 95 for video, (do not use for phone, instead use 67395-35) [facility] ([place] 11[place]/2023 Estab. patient 30-39min; chronic exacerbation, 2 stable chronic or 1 acute illness add add modifier 95 for video, (do not use for phone, instead use 22380-67) [facility] ([place]/2023 Estab. patient 30-39min; chronic exacerbation, 2 stable chronic or 1 acute illness add add modifier 95 for video, (do not use for phone, instead use 19623-21) [facility] ([place]/2023 Estab. patient 30-39min; chronic exacerbation, 2 stable chronic or 1 acute illness add add modifier 95 for video, (do not use for phone, instead use 10366-29) [facility] ([place]/2023 Estab. patient 30-39min; chronic exacerbation, 2 stable chronic or 1 acute illness add add modifier 95 for video, (do not use for phone, instead use 03786-46) [facility] ([place] 11/11/2023 Vital Signs Date of Collection Vitals [...] (do not use for phone, instead use 05434-28) [id number] 2022-03-15 No Data Available No Data Availa ble Estab. patient 30-39min; chronic exacerbation, 2 stable chronic or 1 acute illness add add modifier 95 for video, (do not use for phone, instead use 56545-61) [id number] 2023-01-05 No Data Available No Data Availa [...] (do not use for phone, instead use 37140-20) [id number] 2023-11-11 No Data Available No Data Availa [...] Functional Status Functional Category Effective Dates has NURSING PROFESSOR (daughter and grand son) 3 hours per [...] documented (1126F)Continue to see PCP. [facility] [...] organ damage (headache, vision changes, chest pain)/ Supply Chain Development Manager on proper BP monitoring technique and reassess/ Encourage low sodium diet/ Discuss breathing exercises/ Encourage medication adherence Goals Date Goal 2022-03-15 Remember to Charge y our tablet so it's ready if you need [facility]. 2022-03-15 Call me if you need to be connected to a psychiatric social worker supervisor, you become ill and cannot get ahold [...] YesDo you have a Durable Power of Burglar Alarm Inspector for Healthcare, or Healthcare Proxy? NoIf so, Who? Iza Geronimo (Daughter) Code Status: Resuscitate /CPR/ Full codeOther Details of discussion (Who was present, patients description of wishes/goals): 2023-11-11 Most recent hospital stay(s) or ER visit(s) and precipitating factors: denies 2023-11-11 Open HEDIS Measure ike templeton: done
--- NOTE | 2024-12-21 13:50 | HO.NEPHOV_ITS ---
Vital Signs 12/21/24 13:51 Height 5 ft 1 in Weight 104 lb 6 oz BMI 19.7 BP 122/70 Blood Pressure Location Lt brachial Pulse 80 Pulse Source Pulse Oximeter Pulse Oximetry (%) 100 Oxygen Delivery Method Room Air Intake Visit Reasons: INP: CKD STG 4/ Mailbox not setup Letterpress Printing Machinist Required: Yes Letterpress Printing Machinist Language: Machine Setter And Repairer Services: Letterpress Printing Machinist Present Letterpress Printing Machinist Name: Rios [id number] Information Interpreted: clinical only Accompanied by: Other Relationship Allergies No Known Allergies (No Known Allergies*) Allergy (Verified 12/21/24 13:50) HPI Comments Details: I had the privilege of seeing Heather in consultation for JESI on CKD. She is 74 years of age with H/O long standing hypertension. She has been on ACEI as well as HCTZ. She denies nausea, vomiting, diarrhea, shortness of breath, PND, orthopnea, dizziness, epistaxis, photosensitivity, new skin rashes, new bone or back pain, excess NSAID intake, H/O malignancies, CAD, carotid stenosis, CVA, CHF or PAD. She has no urinary symptoms, sinusitis, epistaxis, edema, M/S hematuria or hearing impairment. Her serum creatinine is 1.77 [facility] Medical History Pure hypercholesterolemia COVID-19 Annual physical exam Allergic rhinitis Malnourished Chronic fatigue B12 deficiency Essential (primary) hypertension Surgical History Cataract History of shoulder surgery Family History Father Asthma Mother Stomach cancer Brother Hypertension Social History Household Members: None Housing: Apartment Are you a primary emergency care tech to a significant other at home: Yes Do you presently have visiting nurse or other home services: No Alcohol intake: never Patient Tobacco Use Status: Never used Tobacco e-Cigarette/Vaping Use: Never Used Second Hand Smoke Exposure: No service: No Current occupational status: disabled Cognitive needs: No Hearing needs: No Vision needs: No Review of Systems Const All systems reviewed & are unremarkable except as noted in HPI and below Physical Exam Const General: comfortable and no acute distress Orientation/consciousness: patient oriented x3 HEENT Head: Yes normocephalic Mouth: Normal oral and palatal mucosa present Eyes EOM: EOMs intact bilaterally Neck Neck: Yes supple Resp Auscultation: clear to auscultation bilaterally Cardio Jugular venous distension: no JVD Rate: regular rate Heart sounds: Murmur heart sound present GI Palpation (GI): Soft to palpation Auscultation: normal bowel sounds General: Yes no CVA tenderness Back/Spine/Pelvis Back: no CVA tenderness Skin General skin exam: no rashes or lesions noted Neuro General: patient oriented x3 and moves all extremities Extrem General: Yes no pedal edema Results Reviewed Nephrology Results: Hgb, (12.0-16.0) 9.0 g/dl L 12/13/24 WBC, (4.8-10.8) 4.8 X10*3/uL 12/13/24 Plt Count, (160-400) 246 X10*3/uL 25 Sodium, (135-145) 143 mmol/L 25 Potassium, (3.3-5.1) 4.9 mmol/L 12/13/24 Chloride, (96-108) 111 mmol/L H 12/13/24 Carbon Dioxide, (22-29) 21 mmol/L L 25 BUN, (9-16) 29 mg/dL H 12/13/24 Creatinine, (0.5-1.4) 1.77 mg/dL H 12/13/24 Calcium, (8.4-10.2) 9.6 mg/dL 25 Assessment & Plan Assessment & Plan (1) Essential (primary) hypertension: Code(s): I10 - Essential (primary) hypertension Category: Medical (2) CKD stage 3a, GFR 45-59 ml/min: Code(s): N18.31 - Chronic kidney disease, stage 3a Category: Medical Plan 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 She might have had tubular injury with progression of her renal disease. She is on ACEI & HCTZ. She may be having oni vascular disease. I have ordered detailed work up including imaging studies as well as blood work and urine studies. She will be a candidate for SGLT2 i. I shall consider backing off on ACEI / HCTZ if her serum creatinine worsens. She should maintain good hydration and avoid NSAID's. Further management is pending evolving data. Answered all questions and F/U was given Orders: Orders UA and rflx microscopic 2 Weeks I10 - Essential (primary) hypertension, N18.31 - Chronic kidney disease, stage 3a Electrolytes 2 Weeks I10 - Essential (primary) hypertension, N18.31 - Chronic kidney disease, stage 3a Hepatitis B Core Antibody 2 Weeks I10 - Essential (primary) hypertension, N18.31 - Chronic kidney disease, stage 3a Hepatitis C Antibody Reflex 2 Weeks I10 - Essential (primary) hypertension, N18.31 - Chronic kidney disease, stage 3a Hepatitis B Surface Antigen 2 Weeks I10 - Essential (primary) hypertension, N18.31 - Chronic kidney disease, stage 3a Anti DNA DS Antibody 2 Weeks I10 - Essential (primary) hypertension, N18.31 - Chronic kidney disease, stage 3a Proteinase 3 PR3 Antibodies 2 Weeks I10 - Essential (primary) hypertension, N18.31 - Chronic kidney disease, stage 3a Complement C4 2 Weeks I10 - Essential (primary) hypertension, N18.31 - Chronic kidney disease, stage 3a Immunofixation Pnl, Serum 2 Weeks I10 - Essential (primary) hypertension, N18.31 - Chronic kidney disease, stage 3a US renal BI 2 Weeks I10 - Essential (primary) hypertension, N18.31 - Chronic kidney disease, stage 3a Protein Creatinine Ratio, Ur 2 Weeks I10 - Essential (primary) hypertension, N18.31 - Chronic kidney disease, stage 3a Parathyroid Hormone Intact 2 Weeks I10 - Essential (primary) hypertension, N18.31 - Chronic kidney disease, stage 3a Vitamin D 25-OH Total 2 Weeks I10 - Essential (primary) hypertension, N18.31 - Chronic kidney disease, stage 3a Calcium 2 Weeks I10 - Essential (primary) hypertension, N18.31 - Chronic kidney disease, stage 3a Blood Urea Nitrogen 2 Weeks I10 - Essential (primary) hypertension, N18.31 - Chronic kidney disease, stage 3a Creatinine 2 Weeks I10 - Essential (primary) hypertension, N18.31 - Chronic kidney disease, stage 3a Myeloperoxidase Antibody 2 Weeks I10 - Essential (primary) hypertension, N18.31 - Chronic kidney disease, stage 3a Anti Glomerular Basement Memb 2 Weeks I10 - Essential (primary) hypertension, N18.31 - Chronic kidney disease, stage 3a Complement C3 2 Weeks I10 - Essential (primary) hypertension, N18.31 - Chronic kidney disease, stage 3a Phospholipase A2 Receptor Pnl 2 Weeks I10 - Essential (primary) hypertension, N18.31 - Chronic kidney disease, stage 3a US renal doppler 2 Weeks I10 - Essential (primary) hypertension, N18.31 - Chronic kidney disease, stage 3a Coding Level of Care Code New Pt Level 4 (11829) Diagnoses Essential (primary) hypertension I10 CKD stage 3a, GFR 45-59 ml/min N18.31
[2024-12-21 13:51] VITALS: BP 122/70; PULSE 80; O2SAT 100; BMI 19.7
== END 2024-12-21 14:04 | disposition home or self-care (01) ==
LOC: HO.HKA 13:43
PROVIDERS: PCP Internal Medicine; Referring Provider Internal Medicine; Visit Provider Internal Medicine Nephrology
DX: I10 Essential (primary) hypertension (principal); N18.31 Chronic kidney disease, stage 3a
CPT/HCPCS: 99204

== ENCOUNTER → 2024-12-21 13:43 | Outpatient (BNVA) | payer OTHER, SELFPAY | PROVIDERS: PCP Internal Medicine; Referring Provider Internal Medicine; Visit Provider Internal Medicine Nephrology | DX: I12.9 Hypertensive chronic kidney disease with stage 1 through stage 4 chronic kidney disease, or unspecified chronic kidney disease (principal); N18.31 Chronic kidney disease, stage 3a | CPT/HCPCS: 99202 ==

== ENCOUNTER 2025-01-01 10:00 | Outpatient (REF) | payer OTHER, SELFPAY ==
--- OUTSIDE RECORDS SUMMARY | 2025-01-01 10:55 | XMS_ITS ---
Demographics Address [address] [place] [address] [address] [place] [address] Home Phone [phone] Preferred Language Unknown Marital Status Unknown Latter Day Affiliation Unknown Race Unknown Additional Race(s) Unavailable Ethnic Group Unknown Author Name Yamilet WEISS Jollytarapaco tianna Ortiz Address [address] [place] [address] Phone [phone] [facility] Care Team Providers Care Electronic Console Display Operator Name Role Phone Madiha Woodard Unavailable [phone] [employer] Unavailable [phone] Orders, [facility] Unavailable [phone] [facility] Unavailable [phone] JENNIFER GREGG Unavailable [phone] Reason for Referral Not Available Allergies, adverse [...] organ damage (headache, vision changes, chest pain)/ Professor Of Rhetoric on proper BP monitoring technique and reassess/ [...] Pain Assessment - NO pain present (1126F) [facility] [place] Pain Assessment - NO pain present (1126F) [facility] [place] Pain Assessment - NO pain present (1126F) [facility] [place] Pain Assessment - NO pain present (1126F) [facility] [place] Pain Assessment - NO pain present (1126F) [facility] [place] Pain Assessment - NO pain present (1126F) [facility] [place] Pain Assessment - NO pain present (1126F) [facility] [place] Unspecified protein-calorie malnutritionDeficiency of other specified B group vitaminsPrsnl hx of TIA (TIA), and cereb infrc w/o resid deficitsCataract secondary to ocular disorders, bilateralBody mass index (BMI) 19 or less, adult Estab. patient 30-39min; chronic exacerbation, 2 stable chronic or 1 acute illness add add modifier 95 for video, (do not use for phone, instead use 91770-53) [facility] [place]2023 Unspecified protein-calorie malnutritionMild protein-calorie malnutritionBody [...] (do not use for phone, instead use 26840-81) [facility] [place] Estab. patient 30-39min; chronic exacerbation, 2 stable chronic or 1 acute illness add add modifier 95 for video, (do not use for phone, instead use 58272-21) [facility] ([place] 01/05/2023 Estab. patient 30-39min; chronic exacerbation, 2 stable chronic or 1 acute illness add add modifier 95 for video, (do not use for phone, instead use 21134-90) [facility] [place]20[place] Estab. patient 30-39min; chronic exacerbation, 2 stable chronic or 1 acute illness add add modifier 95 for video, (do not use for phone, instead use 05376-23) [facility] [place]20[place] Estab. patient 30-39min; chronic exacerbation, 2 stable chronic or 1 acute illness add add modifier 95 for video, (do not use for phone, instead use 51358-57) [facility] [place]2023 Estab. patient 30-39min; chronic exacerbation, 2 stable chronic or 1 acute illness add add modifier 95 for video, (do not use for phone, instead use 22275-69) [facility] [place] 11[place]2023 Unspecified protein-calorie malnutritionEssential (primary) hypertensionMild [...] (do not use for phone, instead use 53531-72) [facility] [place]2023 Estab. patient 30-39min; chronic exacerbation, 2 stable chronic or 1 acute illness add add modifier 95 for video, (do not use for phone, instead use 47380-17) [facility] [place] 11[place]2023 Estab. patient 30-39min; chronic exacerbation, 2 stable chronic or 1 acute illness add add modifier 95 for video, (do not use for phone, instead use 23575-48) [facility] ([place] 11/11/2023 Estab. patient 30-39min; chronic exacerbation, 2 stable chronic or 1 acute illness add add modifier 95 for video, (do not use for phone, instead use 46016-06) [facility] ([place] 11/11/2023 Estab. patient 30-39min; chronic exacerbation, 2 stable chronic or 1 acute illness add add modifier 95 for video, (do not use for phone, instead use 59351-24) [facility] ([place] 11/11/2023 Estab. patient 30-39min; chronic exacerbation, 2 stable chronic or 1 acute illness add add modifier 95 for video, (do not use for phone, instead use 08916-07) [facility] ([place] 11/11/2023 Estab. patient 30-39min; chronic exacerbation, 2 stable chronic or 1 acute illness add add modifier 95 for video, (do not use for phone, instead use 84012-50) [facility] ([place] 11/11/2023 Vital Signs Date of Collection Vitals [...] tive Time Current Smoking Status Never smoker 2024-12-21 2 Sex Female History of Procedures Procedures Service [...] (do not use for phone, instead use 15447-04) [id number] 2022-03-15 No Data Available No Data Availa ble Estab. 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 [facility] or disease [...] organ damage (headache, vision changes, chest pain)/ Professor Of Rhetoric on proper BP monitoring technique and reassess/ Encourage low sodium diet/ Discuss breathing exercises/ Encourage medication adherence Goals Date Goal 2022-03-15 Remember to Charge y our tablet so it's ready if you [facility]. 2022-03-15 Call me if you need to be connected to a social work lecturer, you become ill and cannot get ahold [...] YesDo you have a Durable Power of Nitroglycerin Distributor for Healthcare, or Healthcare Proxy? NoIf so, Who? Iza Geronimo (Daughter) Code Status: Resuscitate /CPR/ Full codeOther Details of discussion (Who was present, patients description of wishes/goals): 2023-11-11 Most recent hospital stay(s) or ER visit(s) and precipitating factors: denies 2023-11-11 Open HEDIS Measure ike [place]: done
[2025-01-01 11:47] LABS: Anion Gap 16 (12-20); Blood Urea Nitrogen 21 mg/dL (9-16); Calcium 9.6 mg/dL (8.4-10.2); Carbon Dioxide 25 mmol/L (22-29); Chloride 107 mmol/L (96-108); Estimated Glomerular Filt Rate 32; Potassium 4.9 mmol/L (3.3-5.1); Sodium 143 mmol/L (135-145)
[2025-01-01 11:51] LABS: Appearance Urine Clear; Glucose Urine UA Negative (Negative); PH 6.0 (5.0-9.0); Specific Gravity - Urine 1.015 (1.005-1.025); UMIC TRIGGER UA YES
[2025-01-01 12:03] LABS: Total Protein Urine Random < 7 mg/dL (<12)
[2025-01-01 12:09] LABS: HBc Num1 0.05 S/CO (0.00-0.79); HBsAGNum1 0.36 S/CO (0.00-0.99); Hepatitis B Surface Antigen Negative (Negative); ~HepC Num1 0.08 S/CO (0.00-0.79); ~Hepatitis C Antibody Nonreactive (Nonreactive)
[2025-01-01 12:31] LABS: Parathyroid Hormone Intact 136.4 pg/mL (8.7-77.1)
[2025-01-03 22:08] LABS: Anti Glomerular Basement Memb <1.0 AI; Proteinase 3 PR3 Antibodies <1.0 AI
[2025-01-06 00:08] LABS: Phospholipase A2 IgG ELISA <4 RU/mL; Phospholipase A2 IgG IFA NEGATIVE (NEGATIVE)
== END 2025-01-01 10:01 | disposition home or self-care (01) ==
LOC: HO.LAB 10:00
PROVIDERS: PCP Internal Medicine; Visit Provider Internal Medicine Nephrology
DX: Z11.59 Encounter for screening for other viral diseases (principal); Z01.84 Encounter for antibody response examination; I12.9 Hypertensive chronic kidney disease with stage 1 through stage 4 chronic kidney disease, or unspecified chronic kidney disease; N18.31 Chronic kidney disease, stage 3a
CPT/HCPCS: 36415; 80051; 81001; 82306; 82310; 82565; 82570; 82784; 83520; 83970; 84156; 84520; 86021; 86160; 86225; 86255; 86334; 86704; 86803; 87340

== ENCOUNTER 2025-01-16 10:02 | Outpatient (REF) | payer OTHER, SELFPAY ==
--- NOTE | ~2025-01-16 | US_ITS ---
CLINICAL HISTORY: N18.31 - Chronic kidney disease, stage 3a US Renal with Doppler Comparison: None provided Findings: Right kidney normal size and echotexture, 8.3 cm length. No hydronephrosis. Normal color Doppler. Resistive index 0.68-0.78. Midpole cysts measuring 2.3 x 1.8 x 2.3 cm. Left kidney normal size and echotexture, 7.1 cm length. No hydronephrosis. Normal color Doppler. Resistive index 0.77-0.85. Normal bilateral peak systolic velocities both renal arteries. IMPRESSION: 1. Peak systolic velocities in resistive indices are within normal limits bilaterally. No evidence of renal artery stenosis bilaterally. 2. Right kidney midpole 2.3 cm cyst. This document has been electronically signed by: Antoinette Santos MD on 01/16/2025 22:57:59
--- OUTSIDE RECORDS SUMMARY | 2025-01-16 10:50 | XMS_ITS ---
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 Name Role Phone Madiha Woodard Unavailable [phone] [employer] Unavailable [phone] Orders, [facility] Unavailable [phone] [facility] Unavailable [phone] JENNIFER GREGG Unavailable [phone] Reason for Referral Not Available Allergies, adverse [...] organ damage (headache, vision changes, chest pain)/ 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 Project Manager on proper BP monitoring technique and [...] Pain Assessment - NO pain present (1126F) [facility] [place] Pain Assessment - NO pain present (1126F) [facility] [place] Pain Assessment - NO pain present (1126F) [facility] [place] Pain Assessment - NO pain present (1126F) [facility] [place] Pain Assessment - NO pain present (1126F) [facility] [place] Pain Assessment - NO pain present (1126F) [facility] [place] Pain Assessment - NO pain present (1126F) [facility] [place] 03[place] Unspecified protein-calorie malnutritionDeficiency of other specified B group vitaminsPrsnl hx of TIA (TIA), and cereb infrc w/o resid deficitsCataract secondary to ocular disorders, bilateralBody mass index (BMI) 19 or less, adult Estab. patient 30-39min; chronic exacerbation, 2 stable chronic or 1 acute illness add add modifier 95 for video, (do not use for phone, instead use 18810-28) [facility] [place]2023 Unspecified protein-calorie malnutritionMild protein-calorie malnutritionBody [...] (do not use for phone, instead use 12720-08) [facility] [place] 01[place]20[place] Estab. patient 30-39min; chronic exacerbation, 2 stable chronic or 1 acute illness add add modifier 95 for video, (do not use for phone, instead use 63002-91) [facility] ([place] 01/05/2023 Estab. patient 30-39min; chronic exacerbation, 2 stable chronic or 1 acute illness add add modifier 95 for video, (do not use for phone, instead use 48412-01) [facility] [place] 01[place]20[place] Estab. patient 30-39min; chronic exacerbation, 2 stable chronic or 1 acute illness add add modifier 95 for video, (do not use for phone, instead use 44769-53) [facility] [place] 01[place]2023 Estab. patient 30-39min; chronic exacerbation, 2 stable chronic or 1 acute illness add add modifier 95 for video, (do not use for phone, instead use 04167-86) [facility] [place] 01[place]2023 Estab. patient 30-39min; chronic exacerbation, 2 stable chronic or 1 acute illness add add modifier 95 for video, (do not use for phone, instead use 02718-27) [facility] [place] 11[place]2023 Unspecified protein-calorie malnutritionEssential (primary) hypertensionMild [...] (do not use for phone, instead use 13170-90) [facility] [place]20[place] Estab. patient 30-39min; chronic exacerbation, 2 stable chronic or 1 acute illness add add modifier 95 for video, (do not use for phone, instead use 64362-41) [facility] [place] 11[place]2023 Estab. patient 30-39min; chronic exacerbation, 2 stable chronic or 1 acute illness add add modifier 95 for video, (do not use for phone, instead use 57857-32) [facility] [place]/2023 Estab. patient 30-39min; chronic exacerbation, 2 stable chronic or 1 acute illness add add modifier 95 for video, (do not use for phone, instead use 04906-07) [facility] ([place] 11/11/2023 Estab. patient 30-39min; chronic exacerbation, 2 stable chronic or 1 acute illness add add modifier 95 for video, (do not use for phone, instead use 64485-46) [facility] [place] 11/11/2023 Estab. patient 30-39min; chronic exacerbation, 2 stable chronic or 1 acute illness add add modifier 95 for video, (do not use for phone, instead use 95405-17) [facility] ([place] 11/11/2023 Estab. patient 30-39min; chronic exacerbation, 2 stable chronic or 1 acute illness add add modifier 95 for video, (do not use for phone, instead use 57350-90) [facility] ([place] 11/11/2023 Vital Signs Date of Collection [...] tive Time Current Smoking Status Never smoker 2024-12-22 7 Sex Female History of Procedures Procedures Service [...] (do not use for phone, instead use 54589-72) 16428 2022-03-15 No Data Available No Data Availa ble Estab. 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 [facility] for any acute or disease [...] organ damage (headache, vision changes, chest pain)/ Hvac Project Manager on proper BP monitoring technique and reassess/ Encourage low sodium diet/ Discuss breathing exercises/ Encourage medication adherence Goals Date Goal 2022-03-15 Remember to Charge y our tablet so it's ready if you need to [facility]. 2022-03-15 Call me if you need to be connected to a social contact worker, you become ill and cannot get [...] YesDo you have a Durable Power of Singing Telegram Performer for Healthcare, or Healthcare Proxy? NoIf so, Who? Iza Geronimo (Daughter) Code Status: Resuscitate /CPR/ Full codeOther Details of discussion (Who was present, patients description of wishes/goals): 2023-11-11 Most recent hospital stay(s) or ER visit(s) and precipitating factors: denies 2023-11-11 Open HEDIS Measure ike [place]: done
== END 2025-01-16 10:03 | disposition home or self-care (01) ==
LOC: HO.US 10:02
PROVIDERS: PCP Internal Medicine; Visit Provider Internal Medicine Nephrology
DX: I12.9 Hypertensive chronic kidney disease with stage 1 through stage 4 chronic kidney disease, or unspecified chronic kidney disease (principal); N18.31 Chronic kidney disease, stage 3a
CPT/HCPCS: 76775; 93975

== ENCOUNTER → 2025-01-16 10:05 | Outpatient (BNV) | payer OTHER, SELFPAY | PROVIDERS: PCP Internal Medicine; Visit Provider Student in an Organized Health Care Education/Training Program | DX: I10 Essential (primary) hypertension (principal) | CPT/HCPCS: 93975 ==

== ENCOUNTER 2025-02-20 13:56 | Outpatient (AMB) | payer OTHER, SELFPAY ==
--- NOTE | 2025-02-20 14:03 | HO.NEPHOV ---
Vital Signs 02/20/25 14:05 Height 5 ft 1 in Weight 105 lb 4 oz BMI 19.9 BP 132/72 Blood Pressure Location Lt brachial Position Sitting Pulse 73 Pulse Source Pulse Oximeter Pulse Oximetry (%) 95 Oxygen Delivery Method Room Air Intake Visit Reasons: 1mon f/u w/labs-Voicemail unavailable Knitting Inspector Required: Yes Knitting Inspector Language: Emissions Testing And Repair Technician Services: Knitting Inspector Present Knitting Inspector Name: Thierry [id number] Information Interpreted: clinical only Accompanied by: Self / Same As Patient Allergies No Known Allergies (No Known Allergies*) Allergy (Verified 02/20/25 14:04) HPI Comments Details: I had the privilege of seeing Heather in follow up for CKD. She is 74 years of age with H/O long standing hypertension. She has been on ACEI as well as HCTZ. She denies nausea, vomiting, diarrhea, shortness of breath, PND, orthopnea, dizziness, epistaxis, photosensitivity, new skin rashes, new bone or back pain, excess NSAID intake, H/O malignancies, CAD, carotid stenosis, CVA, CHF or PAD. She has no urinary symptoms, sinusitis, epistaxis, edema, M/S hematuria or hearing impairment. Her serum creatinine improved PFSH Medical History Pure hypercholesterolemia COVID-19 Annual physical exam Allergic rhinitis Malnourished Chronic fatigue B12 deficiency Essential (primary) hypertension Surgical History Cataract History of shoulder surgery Family History Father Asthma Mother Stomach cancer Brother Hypertension Social History Household Members: None Housing: Apartment Are you a primary health care recruiter to a significant other at home: Yes Do you presently have visiting nurse or other home services: No Alcohol intake: never Patient Tobacco Use Status: Never used Tobacco e-Cigarette/Vaping Use: Never Used Second Hand Smoke Exposure: No service: No Current occupational status: disabled Cognitive needs: No Hearing needs: No Vision needs: No Review of Systems Const All systems reviewed & are unremarkable except as noted in HPI and below Physical Exam Vital Signs: Last Vital Signs Pulse 73 02/20/25 14:05 BP 132/72 02/20/25 14:05 Pulse Ox 95 02/20/25 14:05 Oxygen Delivery Method Room Air 02/20/25 14:05 BMI result Body Mass Index 19.9 Const General: comfortable and no acute distress Orientation/consciousness: patient oriented x3 HEENT Head: Yes normocephalic Mouth: Normal oral and palatal mucosa present Eyes EOM: EOMs intact bilaterally Neck Neck: Yes supple Resp Auscultation: clear to auscultation bilaterally Cardio Jugular venous distension: no JVD Rate: regular rate GI Palpation (GI): Soft to palpation Auscultation: normal bowel sounds General: Yes no CVA tenderness Back/Spine/Pelvis Back: no CVA tenderness Skin General skin exam: no rashes or lesions noted Neuro General: patient oriented x3 and moves all extremities Extrem General: Yes no pedal edema Results Reviewed Nephrology Results: Hgb, (12.0-16.0) 9.0 g/dl L 12/13/24 WBC, (4.8-10.8) 4.8 X10*3/uL 12/13/24 Plt Count, (160-400) 246 X10*3/uL 12/13/24 Sodium, (135-145) 143 mmol/L 01/01/25 Potassium, (3.3-5.1) 4.9 mmol/L 01/01/25 Chloride, (96-108) 107 mmol/L 01/01/25 Carbon Dioxide, (22-29) 25 mmol/L 01/01/25 BUN, (9-16) 21 mg/dL H 01/01/25 Creatinine, (0.5-1.4) 1.58 mg/dL H 01/01/25 Calcium, (8.4-10.2) 9.6 mg/dL 01/01/25 PTH Intact, (8.7-77.1) 136.4 pg/mL H 01/01/25 Urine Protein, (Neg-Trace) Negative mg/dL 01/01/25 Urine Creatinine 130.43 mg/dL 01/01/25 Protein/Creatinin Ratio TNP 01/01/25 Renal US 01/16/25 Assessment & Plan Assessment & Plan (1) Essential (primary) hypertension: Code(s): I10 - Essential (primary) hypertension Category: Medical (2) CKD stage 3b, GFR 30-44 ml/min: Code(s): N18.32 - Chronic kidney disease, stage 3b Category: Medical (3) Secondary hyperparathyroidism (of renal origin): Code(s): N25.81 - Secondary hyperparathyroidism of renal origin Category: Medical Plan 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 She is on ACEI & HCTZ. She may be having oni vascular disease. Her work up including imaging studies as well as blood work and urine studies were reviewed . She will be a candidate for SGLT2 i. I shall consider backing off on ACEI / HCTZ if her serum creatinine worsens. She should maintain good hydration and avoid NSAID's. She will need activated Vitamin D soon. Further management is pending evolving data. Answered all questions and F/U was given Orders: Orders Electrolytes 3 Months I10 - Essential (primary) hypertension, N18.32 - Chronic kidney disease, stage 3b Calcium 3 Months I10 - Essential (primary) hypertension, N18.32 - Chronic kidney disease, stage 3b Blood Urea Nitrogen 3 Months I10 - Essential (primary) hypertension, N18.32 - Chronic kidney disease, stage 3b Creatinine 3 Months I10 - Essential (primary) hypertension, N18.32 - Chronic kidney disease, stage 3b Protein Creatinine Ratio, Ur 3 Months I10 - Essential (primary) hypertension, N18.32 - Chronic kidney disease, stage 3b Coding Level of Care Code Est Pt Level 4 (08233) Diagnoses Essential (primary) hypertension I10 CKD stage 3b, GFR 30-44 ml/min N18.32 Secondary hyperparathyroidism (of renal origin) N25.81
[2025-02-20 14:05] VITALS: BP 132/72; PULSE 73; O2SAT 95; BMI 19.9
== END 2025-02-20 14:30 | disposition home or self-care (01) ==
LOC: HO.HKA 13:57
PROVIDERS: PCP Internal Medicine; Visit Provider Internal Medicine Nephrology
DX: I10 Essential (primary) hypertension (principal); N18.32 Chronic kidney disease, stage 3b; N25.81 Secondary hyperparathyroidism of renal origin
CPT/HCPCS: 99214

== ENCOUNTER → 2025-02-20 13:56 | Outpatient (BNVA) | payer OTHER, SELFPAY | PROVIDERS: PCP Internal Medicine; Visit Provider Internal Medicine Nephrology | DX: I10 Essential (primary) hypertension (principal); N18.32 Chronic kidney disease, stage 3b; N25.81 Secondary hyperparathyroidism of renal origin | CPT/HCPCS: 99212 ==